=== PATIENT | male | born 1930 | race Caucasian/White ===

== ENCOUNTER → 2016-09-25 | Outpatient (REF) | payer MEDICARE ==
[~2016-09-25] MED LIST: ALLO300T2 PO; ASPI1TAB PO; ASPI81TA85 PO; BACITAB3 PO; CALC500T49 PO; CLAR1TAB2 PO; CORE3.12 PO; CORT10TA PO; CRAN250T PO; CRAN400T3 PO; CYCL5TA PO; DEXA4TA PO; FISH1200 PO; FLON1SPR; FURO40TA2 PO; LACT10SO29 PO; LACT20EL PO; LIDO5TD TD; NYSTOI TOP; OMEP20CA3 PO; PEG1POW PO; PRO-CAP PO; Pantoprazole Sodium PO; RAPA4CAP PO; REVL5CAP2 PO; SENN1TAB2 PO; SODI325T9 PO; TAMS0.4C PO; TORS20TA2 PO; TYLE325T5 PO; TYLE500T78 PO; ULTR50TA PO; VITA100066 PO; VITA500C24 PO; VITA500T88 PO; VITATAB11 PO; ZOME4INJ IV; ZYLO300T4 PO
[2016-09-25 13:54] LABS: IMMUNOGLOBULIN G 2690 MG/DL (681-1648); TOTAL PROTEIN 8.1 GM/DL (6.4-8.2)
[2016-09-25 14:04] LABS: IMMUNOGLOBULIN A 17.8 MG/DL (70-400); IMMUNOGLOBULIN M 10.7 MG/DL (40-230)
[2016-09-28 00:06] LABS: FREE KAPPA LIGHT CHAINS SERUM 66.04 mg/L (3.30-19.40); FREE LAMBDA LIGHT CHAINS SERUM 10.29 mg/L (5.71-26.30); KAPPA/LAMBDA RATIO SERUM 6.42 (0.26-1.65)
[2016-09-30 10:37] LABS: ALBUMIN 3.62 GM/DL (3.29-5.55); ALBUMIN % 44.7 % (55.8-66.1); GAMMA GLOBULIN % 29.9 % (11.1-18.8)
== END ==
LOC: M LAB REF 12:30
PROVIDERS: ATTEND Internal Medicine Medical Oncology
DX: C90.00 Multiple myeloma not having achieved remission (principal)

== ENCOUNTER → 2016-10-15 | Outpatient (CLI) | payer MEDICARE ==
--- NOTE | 2016-10-16 08:30 | RADONC ---
RADIATION ONCOLOGY FOLLOWUP NOTE DATE: 10/15/2016 CHART NUMBER: [id number] DIAGNOSIS: Multiple myeloma. ECOG PERFORMANCE STATUS: 2. FOLLOWUP NOTE: Mr. King is a very pleasant 86-year-old white male with the diagnosis of multiple myeloma who is presenting to us today for routine followup visit one month post completion of palliative radiation therapy to his lower spine. The patient presents today reporting that he is doing much better. He reports that his pain has improved significantly. He walks about quite well with his walker and can even walk around without pain without the walker. The patient's review of systems is positive for some continued low back pain which is improved, but is otherwise generally noncontributory except for the physical limitations secondary to old age. He denies nausea, vomiting, fevers, chills, night sweats, diplopia, headaches, anxiety or depression, anorexia, weight loss, visual disturbances, chest pain, urinary or bowel difficulties, bone pain, or neurological problems. PHYSICAL EXAMINATION: The patient is a well-developed, well-nourished male in no acute distress. HEENT exam is normocephalic, atraumatic. Extraocular movements are intact. There is no palpable cervical, supraclavicular, infraclavicular, axillary, or inguinal lymphadenopathy present. Lungs are clear to auscultation and percussion. Heart has a regular rate and rhythm. Abdomen is benign with no hepatosplenomegaly, masses, or tenderness. Rectal examination reveals a normal anal sphincter tone. Skeletal examination reveals no tenderness to pressure or percussion of the bony skeleton. Extremities reveal no clubbing, cyanosis, or edema. Neurologic exam is grossly intact as is the remainder of the physical examination. ASSESSMENT: The patient is clinically doing quite well at this point. He is scheduled to see Dr. Millan next week to discuss systemic therapy. I let him know that I do not consider him a candidate for further radiation to this area at this time. It would be quite risky. We have therefore set him up for routine followup in our office in 6 months' time. cc: Melina Millan MD *Philippe Santiago, DO
== END ==
LOC: M ONCR 14:04
PROVIDERS: ATTEND Radiology Radiation Oncology
DX: C90.00 Multiple myeloma not having achieved remission (principal)

== ENCOUNTER → 2016-11-18 | Outpatient (REF) | payer MEDICARE ==
[2016-11-18 19:51] LABS: IMMUNOGLOBULIN G 3270 MG/DL (681-1648); TOTAL PROTEIN 8.8 GM/DL (6.4-8.2)
[2016-11-18 20:22] LABS: IMMUNOGLOBULIN A 17.9 MG/DL (70-400); IMMUNOGLOBULIN M 5.62 MG/DL (40-230)
[2016-11-20 13:10] LABS: ALBUMIN 3.78 GM/DL (3.29-5.55); GAMMA GLOBULIN % 33.2 % (11.1-18.8)
[2016-11-21 00:08] LABS: FREE KAPPA LIGHT CHAINS SERUM 105.28 mg/L (3.30-19.40); FREE LAMBDA LIGHT CHAINS SERUM 10.72 mg/L (5.71-26.30); KAPPA/LAMBDA RATIO SERUM 9.82 (0.26-1.65)
== END ==
LOC: M LAB REF 16:36
PROVIDERS: ATTEND Internal Medicine Medical Oncology
DX: C90.00 Multiple myeloma not having achieved remission (principal)

== ENCOUNTER → 2016-12-23 | Outpatient (REF) | payer MEDICARE ==
[2016-12-23 20:24] LABS: TOTAL PROTEIN 8.7 GM/DL (6.4-8.2)
[2016-12-24 11:42] LABS: ALBUMIN 3.85 GM/DL (3.29-5.55); ALBUMIN % 44.3 % (55.8-66.1); GAMMA GLOBULIN % 30.7 % (11.1-18.8)
[2016-12-26 00:06] LABS: FREE KAPPA LIGHT CHAINS SERUM 81.82 mg/L (3.30-19.40); FREE LAMBDA LIGHT CHAINS SERUM 11.54 mg/L (5.71-26.30); KAPPA/LAMBDA RATIO SERUM 7.09 (0.26-1.65)
== END ==
LOC: M LAB REF 16:33
PROVIDERS: ATTEND Internal Medicine Medical Oncology
DX: C90.00 Multiple myeloma not having achieved remission (principal)

== ENCOUNTER → 2017-01-21 | Outpatient (REF) | payer MEDICARE ==
[2017-01-21 14:31] LABS: TOTAL PROTEIN 7.5 GM/DL (6.4-8.2)
[2017-01-22 12:02] LABS: ALBUMIN 3.65 GM/DL (3.29-5.55); ALBUMIN % 48.7 % (55.8-66.1); GAMMA GLOBULIN % 21.9 % (11.1-18.8)
[2017-01-24 00:06] LABS: FREE KAPPA LIGHT CHAINS SERUM 49.82 mg/L (3.30-19.40); FREE LAMBDA LIGHT CHAINS SERUM 14.02 mg/L (5.71-26.30); KAPPA/LAMBDA RATIO SERUM 3.55 (0.26-1.65)
== END ==
LOC: M LAB REF 14:01
PROVIDERS: ATTEND Internal Medicine Medical Oncology
DX: C90.00 Multiple myeloma not having achieved remission (principal)

== ENCOUNTER → 2017-02-19 | Outpatient (REF) | payer MEDICARE ==
[2017-02-19 20:03] LABS: IMMUNOGLOBULIN G 1230 MG/DL (681-1648)
[2017-02-19 20:54] LABS: IMMUNOGLOBULIN A 22.2 MG/DL (70-400)
[2017-02-19 20:55] LABS: IMMUNOGLOBULIN M 5.53 MG/DL (40-230); TOTAL PROTEIN 6.4 GM/DL (6.4-8.2)
[2017-02-20 14:12] LABS: ALBUMIN 3.27 GM/DL (3.29-5.55); ALBUMIN % 51.1 % (55.8-66.1); GAMMA GLOBULIN % 17.3 % (11.1-18.8)
[2017-02-22 00:06] LABS: FREE KAPPA LIGHT CHAINS SERUM 45.5 mg/L (3.3-19.4); FREE LAMBDA LIGHT CHAINS SERUM 16.5 mg/L (5.7-26.3); KAPPA/LAMBDA RATIO SERUM 2.76 (0.26-1.65)
== END ==
LOC: M LAB REF 16:45
PROVIDERS: ATTEND Internal Medicine Medical Oncology
DX: C90.00 Multiple myeloma not having achieved remission (principal)

== ENCOUNTER → 2017-03-30 | Outpatient (REF) | payer MEDICARE ==
[~2017-03-30] MED LIST changes: +BACITAB PO; -BACITAB3 PO; -CYCL5TA PO; +CYCL5TAB PO
[2017-03-30 21:10] LABS: IMMUNOGLOBULIN A 34.9 MG/DL (70-400); IMMUNOGLOBULIN G 947 MG/DL (681-1648); TOTAL PROTEIN 6.2 GM/DL (6.4-8.2)
[2017-03-30 21:40] LABS: IMMUNOGLOBULIN M 8.84 MG/DL (40-230)
[2017-04-01 12:54] LABS: ALBUMIN 3.11 GM/DL (3.29-5.55); ALBUMIN % 50.1 % (55.8-66.1); GAMMA GLOBULIN % 14.2 % (11.1-18.8)
[2017-04-02 00:07] LABS: FREE KAPPA LIGHT CHAINS SERUM 41.2 mg/L (3.3-19.4); FREE LAMBDA LIGHT CHAINS SERUM 24.9 mg/L (5.7-26.3); KAPPA/LAMBDA RATIO SERUM 1.65 (0.26-1.65)
== END ==
LOC: M LAB REF 18:38
PROVIDERS: ATTEND Internal Medicine Medical Oncology
DX: C90.00 Multiple myeloma not having achieved remission (principal)

== ENCOUNTER → 2017-04-15 | Outpatient (CLI) | payer MEDICARE ==
--- NOTE | 2017-04-15 14:29 | RADONC ---
RADIATION ONCOLOGY FOLLOWUP NOTE: DATE OF SERVICE: 04/15/2017 CHART NUMBER: [id number] DIAGNOSIS: Multiple myeloma. ECOG PERFORMANCE STATUS: 2 Mr. King is a very pleasant 86-year-old white male with the diagnosis of multiple myeloma who is presenting to us today for routine followup visit 7 months post completion of external beam radiation therapy. The patient presents today reporting that generally he is doing quite well. The pain in his back and hips is improved significantly. He still has some residual uncomfortable days. He has no other complaints at this time related to his radiation therapy or disease. REVIEW OF SYSTEMS: The patient's review of systems is noncontributory. He denies nausea, vomiting, fevers, chills, night sweats, diplopia, headaches, anxiety or depression, anorexia, weight loss, visual disturbances, chest pain, urinary or bowel difficulties, bone pain, or neurological problems. PHYSICAL EXAMINATION: The patient is a well-developed, well-nourished male in no acute distress. HEENT exam is normocephalic, atraumatic. Extraocular movements are intact. There is no palpable cervical, supraclavicular, infraclavicular, axillary, or inguinal lymphadenopathy present. Lungs are clear to auscultation and percussion. Heart has a regular rate and rhythm. Abdomen is benign with no hepatosplenomegaly, masses, or tenderness. Skeletal examination reveals no tenderness to pressure or percussion of the bony skeleton. Extremities reveal no clubbing, cyanosis, or edema. Neurologic exam is grossly intact, as is the remainder of the physical examination. ASSESSMENT: The patient is clinically doing well at this point. He is receiving systemic therapy at this time with Dr. Millan. He is being followed by his urologist Dr. Irby who has done a PSA level which apparently is rising. He is scheduled to be seen in [place] for further followup and workup for that issue as well. Since the patient is being followed so closely by his medical oncologist for his multiple myeloma and his urologist for his prostate cancer, I have discharged him from our followup except on a as needed basis. He has been instructed to contact me should he develop any new pain or have any questions whatsoever. In addition, I let him know that we would be more than happy to see him at anytime to be referred back to us for any issues whatsoever. cc: Melina Millan MD, FACP MD Brayan Willingham MD
== END ==
LOC: M ONCR 13:04
PROVIDERS: ATTEND Radiology Radiation Oncology
DX: C90.00 Multiple myeloma not having achieved remission (principal)

== ENCOUNTER → 2017-06-08 | Outpatient (REF) | payer MEDICARE ==
[2017-06-08 16:02] LABS: IMMUNOGLOBULIN A 48.9 MG/DL (70-400); IMMUNOGLOBULIN G 1210 MG/DL (681-1648); TOTAL PROTEIN 5.9 GM/DL (6.4-8.2)
[2017-06-08 16:51] LABS: IMMUNOGLOBULIN M 9.23 MG/DL (40-230)
[2017-06-09 12:50] LABS: ALBUMIN 2.64 GM/DL (3.29-5.55); ALBUMIN % 44.7 % (55.8-66.1); GAMMA GLOBULIN % 19.3 % (11.1-18.8)
[2017-06-11 00:07] LABS: FREE KAPPA LIGHT CHAINS SERUM 57.7 mg/L (3.3-19.4); FREE LAMBDA LIGHT CHAINS SERUM 24.5 mg/L (5.7-26.3); KAPPA/LAMBDA RATIO SERUM 2.36 (0.26-1.65)
== END ==
LOC: M LAB REF 12:51
PROVIDERS: ATTEND Internal Medicine Medical Oncology
DX: C90.00 Multiple myeloma not having achieved remission (principal); D64.9 Anemia, unspecified

== ENCOUNTER → 2017-06-30 | Outpatient (REF) | payer MEDICARE ==
[2017-07-01 13:45] LABS: PERCENT SATURATION 31.2 % (19.7-50.0)
== END ==
LOC: M LAB REF 12:56
PROVIDERS: ATTEND Internal Medicine Nephrology
DX: D50.9 Iron deficiency anemia, unspecified (principal)

== ENCOUNTER → 2017-08-10 | Outpatient (REF) | payer MEDICARE ==
[2017-08-10 14:44] LABS: IMMUNOGLOBULIN A 45.8 MG/DL (70-400); IMMUNOGLOBULIN G 1620 MG/DL (681-1648)
[2017-08-10 16:16] LABS: IMMUNOGLOBULIN M 15.1 MG/DL (40-230)
[2017-08-11 10:59] LABS: ALBUMIN 3.49 GM/DL (3.29-5.55); ALBUMIN % 49.8 % (55.8-66.1); GAMMA GLOBULIN % 21.8 % (11.1-18.8)
[2017-08-12 00:06] LABS: FREE KAPPA LIGHT CHAINS SERUM 51.9 mg/L (3.3-19.4); FREE LAMBDA LIGHT CHAINS SERUM 22.9 mg/L (5.7-26.3); KAPPA/LAMBDA RATIO SERUM 2.27 (0.26-1.65)
== END ==
LOC: M LAB REF 12:37
PROVIDERS: ATTEND Internal Medicine Medical Oncology
DX: C90.00 Multiple myeloma not having achieved remission (principal)

== ENCOUNTER → 2017-10-12 | Outpatient (REF) | payer MEDICARE ==
[2017-10-12 21:20] LABS: IMMUNOGLOBULIN A 38.8 MG/DL (70-400); IMMUNOGLOBULIN G 1840 MG/DL (681-1648); TOTAL PROTEIN 7.5 GM/DL (6.4-8.2)
[2017-10-12 21:36] LABS: IMMUNOGLOBULIN M 18.9 MG/DL (40-230)
[2017-10-13 11:15] LABS: ALBUMIN 3.77 GM/DL (3.29-5.55); ALBUMIN % 50.3 % (55.8-66.1); ALPHA-1-GLOBULIN % 4.2 % (2.9-4.9); ALPHA-1-GLOBULINS 0.32 GM/DL (0.17-0.41); ALPHA-2-GLOBULINS 0.98 GM/DL (0.42-0.99); BETA-1-GLOBULINS 0.39 GM/DL (0.28-0.60); BETA-1-GLOBULINS % 5.2 % (4.7-7.2); BETA-2-GLOBULINS 0.28 GM/DL (0.19-0.55); BETA-2-GLOBULINS % 3.7 % (3.2-6.5); GAMMA GLOBULIN % 23.6 % (11.1-18.8); GAMMA GLOBULINS 1.77 GM/DL (0.65-1.58)
[2017-10-15 00:06] LABS: FREE KAPPA LIGHT CHAINS SERUM 67.1 mg/L (3.3-19.4); FREE LAMBDA LIGHT CHAINS SERUM 24.9 mg/L (5.7-26.3); KAPPA/LAMBDA RATIO SERUM 2.69 (0.26-1.65)
== END ==
LOC: M LAB REF 18:13
DX: C90.00 Multiple myeloma not having achieved remission (principal)
CPT/HCPCS: 84165

== ENCOUNTER → 2017-12-10 | Outpatient (REF) | payer MEDICARE ==
[2017-12-10 19:13] LABS: IMMUNOGLOBULIN G 2060 MG/DL (681-1648); TOTAL PROTEIN 7.9 GM/DL (6.4-8.2)
[2017-12-10 19:40] LABS: IMMUNOGLOBULIN A 35.4 MG/DL (70-400)
[2017-12-10 20:22] LABS: IMMUNOGLOBULIN M 18.8 MG/DL (40-230)
[2017-12-13 00:07] LABS: FREE KAPPA LIGHT CHAINS SERUM 76.7 mg/L (3.3-19.4); FREE LAMBDA LIGHT CHAINS SERUM 20.9 mg/L (5.7-26.3); KAPPA/LAMBDA RATIO SERUM 3.67 (0.26-1.65)
[2017-12-15 11:47] LABS: ALBUMIN 3.97 GM/DL (3.29-5.55); ALBUMIN % 50.2 % (55.8-66.1); ALPHA-1-GLOBULIN % 3.7 % (2.9-4.9); ALPHA-1-GLOBULINS 0.29 GM/DL (0.17-0.41); ALPHA-2-GLOBULINS 1.05 GM/DL (0.42-0.99); ALPHA-2-GLOBULINS % 13.3 % (7.1-11.8); BETA-1-GLOBULINS % 5.1 % (4.7-7.2); BETA-2-GLOBULINS 0.25 GM/DL (0.19-0.55); BETA-2-GLOBULINS % 3.2 % (3.2-6.5); GAMMA GLOBULIN % 24.5 % (11.1-18.8); GAMMA GLOBULINS 1.94 GM/DL (0.65-1.58)
== END ==
LOC: M LAB REF 17:27
DX: C90.00 Multiple myeloma not having achieved remission (principal)
CPT/HCPCS: 84165

== ENCOUNTER → 2018-02-23 | Outpatient (REF) | payer MEDICARE ==
[2018-02-23 19:16] LABS: IMMUNOGLOBULIN A 29.4 MG/DL (70-400); IMMUNOGLOBULIN G 2350 MG/DL (681-1648); TOTAL PROTEIN 8.4 GM/DL (6.4-8.2)
[2018-02-25 10:57] LABS: ALBUMIN 3.93 GM/DL (3.29-5.55); ALBUMIN % 46.8 % (55.8-66.1); ALPHA-1-GLOBULIN % 3.8 % (2.9-4.9); ALPHA-1-GLOBULINS 0.32 GM/DL (0.17-0.41); ALPHA-2-GLOBULINS 1.15 GM/DL (0.42-0.99); ALPHA-2-GLOBULINS % 13.7 % (7.1-11.8); BETA-1-GLOBULINS 0.39 GM/DL (0.28-0.60); BETA-1-GLOBULINS % 4.7 % (4.7-7.2); BETA-2-GLOBULINS 0.29 GM/DL (0.19-0.55); BETA-2-GLOBULINS % 3.4 % (3.2-6.5); GAMMA GLOBULIN % 27.6 % (11.1-18.8)
[2018-02-25 10:58] LABS: GAMMA GLOBULINS 2.32 GM/DL (0.65-1.58)
[2018-02-26 00:07] LABS: FREE KAPPA LIGHT CHAINS SERUM 83.7 mg/L (3.3-19.4); FREE LAMBDA LIGHT CHAINS SERUM 17.4 mg/L (5.7-26.3); KAPPA/LAMBDA RATIO SERUM 4.81 (0.26-1.65)
== END ==
LOC: M LAB REF 17:27
DX: Z00.00 Encounter for general adult medical examination without abnormal findings (principal)
CPT/HCPCS: 84165

== ENCOUNTER → 2018-03-09 | Outpatient (REF) | payer MEDICARE ==
[2018-03-09 20:01] LABS: FERRITIN 122 NG/ML (26-388); IRON (FE) 70 UG/DL (65-175); PERCENT SATURATION 26.1 % (19.7-50.0); TOTAL IRON BINDING CAPACITY 268 UG/DL (250-450)
== END ==
LOC: M LAB REF 17:19
DX: N18.4 Chronic kidney disease, stage 4 (severe) (principal); D63.1 Anemia in chronic kidney disease
CPT/HCPCS: 83550

== ENCOUNTER → 2018-04-27 | Outpatient (REF) | payer MEDICARE ==
[2018-04-27 19:27] LABS: IMMUNOGLOBULIN G 2860 MG/DL (681-1648)
[2018-04-27 20:12] LABS: IMMUNOGLOBULIN A 24.9 MG/DL (70-400); IMMUNOGLOBULIN M 8.83 MG/DL (40-230)
[2018-04-29 11:49] LABS: ALBUMIN 3.98 GM/DL (3.29-5.55); ALBUMIN % 44.2 % (55.8-66.1); ALPHA-1-GLOBULIN % 3.9 % (2.9-4.9); ALPHA-1-GLOBULINS 0.35 GM/DL (0.17-0.41); ALPHA-2-GLOBULINS 1.19 GM/DL (0.42-0.99); ALPHA-2-GLOBULINS % 13.2 % (7.1-11.8); BETA-1-GLOBULINS % 4.4 % (4.7-7.2); BETA-2-GLOBULINS 0.29 GM/DL (0.19-0.55); BETA-2-GLOBULINS % 3.2 % (3.2-6.5); GAMMA GLOBULIN % 31.1 % (11.1-18.8)
[2018-04-30 00:07] LABS: FREE KAPPA LIGHT CHAINS SERUM 85.1 mg/L (3.3-19.4); FREE LAMBDA LIGHT CHAINS SERUM 17.1 mg/L (5.7-26.3); KAPPA/LAMBDA RATIO SERUM 4.98 (0.26-1.65)
== END ==
LOC: M LAB REF 17:11
DX: D64.9 Anemia, unspecified (principal); C90.00 Multiple myeloma not having achieved remission; C79.51 Secondary malignant neoplasm of bone
CPT/HCPCS: 84165

== ENCOUNTER → 2018-06-03 | Outpatient (CLI) | payer MEDICARE | LOC: M SMT 12:18 | DX: Z01.818 Encounter for other preprocedural examination (principal); C90.02 Multiple myeloma in relapse | CPT/HCPCS: 71046 ==

== ENCOUNTER 2018-06-08 06:11 | Day surgery (SDC) | payer MEDICARE ==
[2018-06-08 06:52] LABS: INR 1.11; PROTHROMBIN TIME 14.4 SECONDS (12.1-14.4)
[2018-06-08 07:04] LABS: PARTIAL THROMBOPLASTIN TIME 36.5 SECONDS (25.4-37.6)
[2018-06-08] MEDS: LR 1,000 ML IV (07:21)
[2018-06-08] MEDS: MUPIROCIN 2% OINT 22 GM TUBE TOP (07:22)
[2018-06-08] MEDS ORDERED: fentaNYL 100 MCG/2 ML INJECTION (J3010) As Ordered (08:05)
[2018-06-08] MEDS ORDERED: LIDOCAINE 2% INJ 100 MG/5 ML SDV (FOR ANES.) As Ordered (08:05)
[2018-06-08] MEDS ORDERED: PROPOFOL 200 MG/20 ML VIAL As Ordered (08:05)
[2018-06-08] MEDS ORDERED: MIDAZOLAM INJ 2 MG/2 ML VIAL (J2250) As Ordered (08:05)
[2018-06-08] MEDS ORDERED: PHENYLephrine HCL 500 MCG/5 ML (100MCG/ML) SYRINGE (J2370) As Ordered (08:10)
[2018-06-08] MEDS: HEPARIN SOD (PORCINE) 5000 UNITS/ML VIAL As Ordered (08:10)
[2018-06-08] MEDS: BUPIVACAINE LIPOSOME/PF 1.3% 20 ML VIAL (13.3MG/ML)(EXPAREL) As Ordered (08:13)
[2018-06-08] MEDS: LIDOCAINE 1% SDV INJ 30 ML VIAL As Ordered (08:13)
== END 2018-06-08 09:45 | disposition home or self-care (01) ==
LOC: M SDC 06:11
DX: C90.00 Multiple myeloma not having achieved remission (principal); Z45.2 Encounter for adjustment and management of vascular access device; K21.9 Gastro-esophageal reflux disease without esophagitis; N18.9 Chronic kidney disease, unspecified; Z85.46 Personal history of malignant neoplasm of prostate; Z92.21 Personal history of antineoplastic chemotherapy; Z88.2 Allergy status to sulfonamides; Z79.899 Other long term (current) drug therapy
CPT/HCPCS: 36561

== ENCOUNTER → 2018-06-14 | Outpatient (CLI) | payer MEDICARE | LOC: M SMT 10:45 | DX: C90.00 Multiple myeloma not having achieved remission (principal) | CPT/HCPCS: 71046 ==

== ENCOUNTER 2018-07-29 10:53 | Day surgery (SDC) | payer MEDICARE ==
[2018-07-29] MEDS: LR 1,000 ML IV (12:00)
[2018-07-29] MEDS: ceFAZolin 1GM INJ (J0690 PER 500MG) As Ordered (12:37)
[2018-07-29] MEDS ORDERED: PROPOFOL 200 MG/20 ML VIAL As Ordered (13:18)
[2018-07-29] MEDS ORDERED: MIDAZOLAM INJ 2 MG/2 ML VIAL (J2250) As Ordered (13:18)
[2018-07-29] MEDS ORDERED: dexameTHASONE 4 MG/ML 1ML VIAL (J1100) As Ordered (13:18)
[2018-07-29] MEDS ORDERED: fentaNYL 100 MCG/2 ML INJECTION (J3010) As Ordered (13:18)
[2018-07-29] MEDS ORDERED: ONDANSETRON 4MG/2ML VIAL (J2405) As Ordered (13:18)
[2018-07-29] MEDS: LIDOCAINE 2% W/EPIN INJ 20ML **PRES FREE As Ordered (14:01)
[2018-07-29] MEDS: BACITRACIN OINT 30GM As Ordered (14:03)
== END 2018-07-29 15:43 | disposition home or self-care (01) ==
LOC: M SDC 10:53
DX: C44.311 Basal cell carcinoma of skin of nose (principal); C44.212 Basal cell carcinoma of skin of right ear and external auricular canal; C90.00 Multiple myeloma not having achieved remission; K21.9 Gastro-esophageal reflux disease without esophagitis; D64.9 Anemia, unspecified; E27.40 Unspecified adrenocortical insufficiency; N18.3 Chronic kidney disease, stage 3 (moderate); M10.9 Gout, unspecified; R23.3 Spontaneous ecchymoses; M12.9 Arthropathy, unspecified; M25.551 Pain in right hip; M25.552 Pain in left hip; Z88.2 Allergy status to sulfonamides; Z88.6 Allergy status to analgesic agent; Z79.899 Other long term (current) drug therapy; Z87.891 Personal history of nicotine dependence; Z92.21 Personal history of antineoplastic chemotherapy; Z85.46 Personal history of malignant neoplasm of prostate; Z98.41 Cataract extraction status, right eye; Z98.42 Cataract extraction status, left eye; Z96.1 Presence of intraocular lens
CPT/HCPCS: 11640

== ENCOUNTER → 2018-10-25 | Outpatient (REF) | payer MEDICARE ==
[~2018-10-25] MED LIST changes: +ALLO10TA PO; +FERR32TA PO; +FLOM0.4C39 PO; +FLUC10TA PO; +FOLI1TAB11 PO; +LIDO2.5C15 TOP; +MAGN250T9 PO; +MONT10TA2 PO; +MULT1TAB18 PO; +PROAAER10 INH; +ROCA0.5C PO; +SING10TA32 PO; +VITA100072 PO; -ZYLO300T4 PO; +ZYLO300T6 PO
[2018-10-25 13:08] LABS: TOTAL PROTEIN,RANDOM URINE 5.7 MG/DL (0.0-12.0); URINE TOTAL PROTEIN 5.7 MG/DL (0-12)
[2018-10-28 15:25] LABS: UPEP INTERPRETATION NO M-SPIKE NOTED; URINE VOLUME 1650 ML
== END ==
LOC: M LAB REF 11:58
PROVIDERS: ATTEND Internal Medicine Medical Oncology
DX: C90.00 Multiple myeloma not having achieved remission (principal); Z79.899 Other long term (current) drug therapy

== ENCOUNTER → 2019-02-14 | Outpatient (CLI) | payer MEDICARE ==
[~2019-02-14] MED LIST changes: +ACE65ERTAB PO; -ASPI1TAB PO; +ASPI81TA26 PO; +BACI1CAP PO; +LACT10SO7 PO; -LACT20EL PO; +RIBO1CAP PO; -SENN1TAB2 PO; +SENN1TAB40 PO; +SM LTAB5 PO; +VITA100018 PO; -VITA100072 PO
--- NOTE | 2019-02-14 15:03 | REP ---
REASON: Carcinoma of the prostate gland. COMPARISON: 10/16/2005 After the intravenous administration of 21.6 millicuries technetium 99m MDP, total body bone scan was obtained. There is increased radionuclide accumulation which is seen on the right sternoclavicular joint. There is a focus of increased radionuclide accumulation seen in the posterior 5th rib. There is increased radionuclide accumulation seen in the right acromioclavicular joint. Patchy increased uptake is seen in the ankles, and knees consistent with a degenerative type uptake pattern. IMPRESSION: 1. Increased radionuclide accumulation seen in the right sternoclavicular and acromioclavicular joints likely a degenerative type uptake pattern. 2. Single focus of increased radionuclide accumulation right posterior 5th rib and representing a change from the prior exam. The exact etiology uncertain. This could be trauma-related. Since it is nonlinear and unifocal, it would be difficult to say that this represents a metastatic focus, however, that cannot be ruled out. 3. Degenerative type uptake pattern in the knees, essentially unchanged from the prior exam. Electronically Signed by Morgan Soriano DO 02/14/2019 04:10 P
== END ==
LOC: M RAD 10:08
PROVIDERS: ATTEND Urology
DX: M85.89 Other specified disorders of bone density and structure, multiple sites (principal)
CPT/HCPCS: 78306; A9503

== ENCOUNTER → 2019-03-28 | Outpatient (CLI) | payer MEDICARE ==
[~2019-03-28] MED LIST changes: +ACET-839 PO; +AMOX875T2; +B COTAB3 PO; +CBD OIL PO; +DARZ1SOL IV; +FLUD0.1T PO; +HYDR-4513 PO; +KRIS20PA4 PO; +LEVA750T7 PO; +LORA-674 PO; +METO1TAB7 PO; +MILKSUS3 PO; +MULT1CAP3 PO; +OMEP1CAP73 PO; -OMEP20CA3 PO; +RAPA8CAP4 PO; +SENN-53 PO; -SENN1TAB40 PO; +TORS10TA3 PO; +TRAZ-252 PO; +TRIA37.53 PO; +TUMS500C PO; +TURM500C PO; +VITMTA PO
--- NOTE | 2019-03-28 14:02 | REP ---
Bilateral carotid artery duplex ultrasound: Peak flow velocity analysis: RIGHT LEFT ICA Peak flow velocity cm/sec 53.5 51.9 ICA Diastolic flow velocity cm/sec 23.1 17.2 ICA/CCA Ratio 0.8 0.7 ECA Peak flow velocity cm/sec 67.4 68.9 CCA Peak flow velocity cm/sec 69.9 70.4 There is mild atheromatous plaque bilaterally. The peak flow velocities are normal bilaterally. There is no stenosis on the right on the left. There is antegrade flow in the vertebral arteries bilaterally. Electronically Signed by Hayes Grant MD 03/28/2019 01:53 P
== END ==
LOC: M RAD 13:00
PROVIDERS: ATTEND Internal Medicine Nephrology
DX: R42 Dizziness and giddiness (principal)

== ENCOUNTER → 2019-04-06 | Outpatient (REF) | payer MEDICARE ==
[~2019-04-06] MED LIST changes: -ACET-839 PO; -AMOX875T2; -B COTAB3 PO; -CBD OIL PO; -DARZ1SOL IV; -FLUD0.1T PO; -HYDR-4513 PO; -KRIS20PA4 PO; -LEVA750T7 PO; -LORA-674 PO; -METO1TAB7 PO; -MILKSUS3 PO; -OMEP1CAP73 PO; +OMEP20CA4 PO; -RAPA8CAP4 PO; -SENN-53 PO; +SENN1TAB40 PO; -TORS10TA3 PO; -TRAZ-252 PO; -TRIA37.53 PO; -TUMS500C PO; -TURM500C PO; -VITMTA PO
== END ==
LOC: M LAB REF 15:33
PROVIDERS: ATTEND Nurse Practitioner Family
DX: L08.9 Local infection of the skin and subcutaneous tissue, unspecified (principal)

== ENCOUNTER 2019-07-22 03:06 | Inpatient (IN) | payer MEDICARE ==
[~2019-07-22] VITALS: Ht 175.3 cm; Wt 114.6 kg
[2019-07-22] VITALS (38 sets, daily range): BP systolic 86–139; BP diastolic 49–71
[~2019-07-22 03:06] MED LIST changes: +SENN-53 PO; -SENN1TAB40 PO
[2019-07-22] MEDS ORDERED: VASOPRESSIN INJ 20 UNITS in NS 500 ML IV SCH ×2 (03:25→08:00)
[2019-07-22] MEDS ORDERED: ACETAMINOPHEN TAB 650MG DOSE (2X325MG) PO PRN (03:30)
[2019-07-22] MEDS ORDERED: VANCOMYCIN HCL 750 MG, VIAL MATE ADAPTER 1 EACH in D5W 250 ML IV SCH (03:30)
[2019-07-22] MEDS ORDERED: LR 1,000 ML IV SCH (03:30)
[2019-07-22] MEDS ORDERED: NOREPINEPHRINE 4 MG/4 ML AMP As Ordered ONE (06:50)
[2019-07-22] MEDS ORDERED: NOREPINEPHRINE BITARTRATE 8 MG in D5W 500 ML IV SCH (07:00)
[2019-07-22] MEDS: HYDROCORTISONE 100 MG/2 ML VIAL (J1720) IV SCH ×3 (07:00→17:55)
[2019-07-22 07:18] LABS: HEMATOCRIT 38.5 % (42.0-52.0); HEMOGLOBIN 12.5 g/dl (13.5-17.5); MEAN CORPUSCULAR HGB CONC 32.5 g/dl (32.0-36.5); MEAN CORPUSCULAR VOLUME 101.6 fl (80.0-96.0); PLATELET COUNT, AUTOMATED 222 10^3/uL (150-450); RED BLOOD COUNT 3.79 10^6/uL (4.30-6.10); WHITE BLOOD COUNT 5.7 10^3/uL (4.0-10.0)
[2019-07-22] MEDS ORDERED: TORS20TA2 PO (07:36)
[2019-07-22] MEDS ORDERED: VITMTA PO (07:36)
[2019-07-22] MEDS ORDERED: TURM500C PO (07:36)
[2019-07-22] MEDS ORDERED: B COTAB3 PO (07:36)
[2019-07-22] MEDS ORDERED: TORS10TA3 PO (07:36)
[2019-07-22] MEDS ORDERED: ACET-839 PO (07:36)
[2019-07-22] MEDS ORDERED: BACITAB PO (07:36)
[2019-07-22] MEDS ORDERED: LORA-674 PO (07:36)
[2019-07-22] MEDS ORDERED: HYDR-4513 PO (07:36)
[2019-07-22] MEDS ORDERED: DARZ1SOL IV (07:39)
[2019-07-22 07:47] LABS: BILIRUBIN,TOTAL 0.6 MG/DL (0.2-1.0); CALCIUM LEVEL 7.8 MG/DL (8.8-10.2); CREATININE FOR GFR 2.18 MG/DL (0.70-1.30); GLOMERULAR FILTRATION RATE 30.6 (>35); POTASSIUM SERUM 4.3 MEQ/L (3.5-5.1); TOTAL PROTEIN 6.1 GM/DL (6.4-8.2)
[2019-07-22] MEDS ORDERED: EPINEPHrine HCL INJ 1 MG in D5W 240 ML IV SCH (08:00)
[2019-07-22] MEDS: FLUOROURACIL 5% XX SCH ×2 (09:00→20:47)
--- NOTE | 2019-07-22 09:04 | REP ---
Single view chest: 07/22/2019. Indication: Hypotension. Comparison: 06/14/2018. Findings: Left-sided Port-A-Cath is again noted with the distal tip within the SVC. Right greater than left pleural effusions are present. Air space consolidations and atelectasis are noted within the lung bases bilaterally, more pronounced on the right. The cardiac silhouette is not enlarged. There is no evidence of pneumothorax. Impression: Bibasilar air space consolidations and atelectasis. Right greater than left pleural effusions. Electronically Signed by Glenn Guerra DO 07/22/2019 08:55 A
[2019-07-22] MEDS ORDERED: NS 1,000 ML IV SCH (09:15)
[2019-07-22] MEDS: HEPARIN SOD (PORCINE) 5000 UNITS/ML VIAL SC SCH ×3 (09:54→21:10)
[2019-07-22] MEDS: PIPERACILLIN/TAZOBACTAM SOD 2.25 GM in D5W MINI-BAG PLUS 50 ML IV SCH ×3 (09:54→20:45)
[2019-07-22] MEDS ORDERED: VANCOMYCIN HCL 1,000 MG, VIAL MATE ADAPTER 1 EACH in D5W 250 ML IV SCH (12:00)
--- NOTE | 2019-07-22 12:42 | HPEPDOC ---
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 Patient presents as a transfer from [facility], for higher level of care, after presenting last night with one episode of nausea, vomiting, and fever, and diarrhea and hypotension. On initial presentation, patient was found to have hypotension without improvement on fluids. Patient was suspected of having of septic shock. He was given 3.2 L of fluid, started on Zosyn and vancomycin, his port was accessed to begin levophed via chemo port at 8 mcg per minute, prior to transfer to [facility] for higher level of care. Upon arrival to [facility] patient was stable, did not require IV vasopressin, his hypotension had resolved, he was afebrile, he was not tachycardic, he denied any recent vomiting, nausea, or diarrhea. This morning patient was examined in his room, he was sitting on the edge of the bed comfortably, reading a newspaper. Patient reported that he experienced a mild cough without any shortness of breath or any expectoration. He reported that initially he did experience some abdominal pain. He denied any nausea, vomiting, diarrhea, constipation or any urinary discomfort. Patient has denied any fevers or chills over the last 2 weeks. PAST MEDICAL HISTORY: Multiple myeloma - currently on chemotherapy Ambulatory dysfunction Prostate cancer. Basal cell skin cancer. Cellulitis, history of Adrenal sufficiency. Inguinal hernia mesh infection History of lower extremity necrotizing fasciitis C. difficile PAST SURGICAL HISTORY: Amputation of finger, right index Cataract Cryosurgery on prostate Hernia repair with mesh. Umbilical hernia repair SOCIAL HISTORY: Single, denies alcohol use, former smoker, quit several years ago, smoked for 30 years prior. FAMILY HISTORY: Family history was reviewed and is currently noncontributory to this current hospitalization ALLERGIES: Please see below. REVIEW OF SYSTEMS: CONSTITUTIONAL: No fevers, denies chills, denies weight loss, denies lethargy HEENT: No rhinorrhea, no itchy eyes, no congestion, CARDIOVASCULAR: No murmurs no palpitations and arrhythmias RESPIRATORY: No shortness of breath, has occasional cough GASTROINTESTINAL: No nausea, no vomiting, no difficulty swallowing, no pain with eating, no diarrhea. Previously reported diarrhea, nausea and vomiting HEMATOLOGICAL: No bleeding GENITOURINARY:No Issues HEMATOLOGIC/LYMPHATIC: No swelling 10 point review systems complete, all negative otherwise stated in HPI PHYSICAL EXAMINATION: VITALS: See Below GENERAL APPEARANCE: Alert no acute distress, comfortably reading a newspaper SKIN: Warm, well perfused. Surgical scar on the right lower leg HEENT: PEERLA, 2 areas of biopsies taken noted LUNGS: No appreciable wheezing, no crackles or rhonchi HEART: Normal S1, S2. No murmurs, no rubs, no gallops ABDOMEN: Soft. No masses. Non-tender, Bowel sounds are present. TRUNK/SPINE:Straight. EXTREMITIES: 1+ pitting edema on bilateral lower extremity, surgical scar noted on patient's right leg PULSES: 2+ upper and lower extremity . HOME MEDICATIONS: Please see below. LABORATORY DATA: See below. IMAGING: Chest x-ray: Bibasilar air space consolidations and atelectasis. Right greater than left pleural effusions. MICROBIOLOGY: Please see below. 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 He presents as a transfer from [facility], for higher level of care, after presenting last night with one episode of nausea, vomiting, and fever, and diarrhea and hypotension. On initial presentation, patient was diagnosed with septic shock. He was given 3.2 L of fluid, started on Zosyn and vancomycin, his port was accessed to begin levophed via chemo port at 8 mcg per minute, prior to transfer to [facility] for higher level of care. PLAN: #Hypotension - possibly 2/2 secondary to adrenal crisis in the setting of adrenal insufficiency, possibly 2/2 to hypovolemic shock, secondary to dehydration, possibly 2/2 septic shock - Patient was adequately hydrated using the sepsis protocol prior to transfer. He receive a total of 3.2 liters prior to transfer - Blood pressure has been stable, since transfer - has not required pressor jimenez pport - CBC was within normal limits, WBC was 3.3 on initial presentation to [facility] - Will order respiratory panel, blood cultures, urine cultures / urinalysis - Will c/w broad spectrum coverage with vancomycin and Zosyn # Possible sepsis Infectious workup. On patient's original presentation to the [facility] patient was found to be in septic shocK due to hypotension, fever, abdominal pain, vomiting, infection, source could not be identified. Prior transfer -CT abdomen and pelvis was negative prior transfer -Ordered. Respiratory panel -Chest x-ray is positive for basilar airspace consolidation and atelectasis with right pleural effusion greater than left -Sputum culture ordered -Urinalysis with evidence of inflammation; however no nitrates or bacteria noted to indicate infection, urine cultures pending -Blood cultures pending -GI panel in the presence of diarrhea -On broad-spectrum antibiotic coverage with vancomycin and Zosyn, will de- escalate as cultures become available #Septic shock, secondary to pneumonia -Chest x-ray shows: Bibasilar air space consolidations and atelectasis. Right greater than left pleural effusions -Currently on broad-spectrum antibiotics, with vancomycin and Zosyn -Gentle IV hydration at 80 milliliters per hour of normal saline #Lactic acidosis secondary to hypovolemia, secondary to septic shock, secondary to possible infection, -Initial presentation. Lactic acid was 2.3, repeat pending #Acute on chronic kidney injury, secondary to dehydration, patient has stage III kidney disease at baseline -Continue gentle IV hydration -We'll hold diuretics -Hold nephrotoxins #Adrenal sufficiency -Received 100 mg of hydrocortisone prior to transfer -Continue hydrocortisone 50 mg every 6 hours IV #Pulmonary HTN history / Possible Diastolic CHF -Prior ECHO done 2015 - evidence of pulmonary HTN and dilated IVC -Echo ordered -Patient does have 1+ pitting edema in lower extremity and evidence of effusions on CXR -Will hold Torsemide at this time #Multiple myeloma -Currently undergoing chemotherapy, last chemotherapy was 2 weeks ago -Receives duratamumab q monthly #ESTUARDO not on CPAP -Order ESTUARDO protocol #Urinary retention, secondary obstruction, secondary to prostate carcinoma -Consulted urology for catheter placement, after multiple failed attempts. -Per Dr. Martinez, catheter cannot be removed during hospital stay due to surgurical scarring from his prior surgery. He will need to follow up with Dr. Martinez after discharge [facility] for removal of the catheter and surgical opening of his bladder neck. Otherwise patient will be unable to urinate #Ambulatory dysfunction, patient at baseline ambulates for a walker -PT #Hyperglycemia, secondary to steroid use -Sliding-scale insulin -ACHS #DVT prophylaxis -Subcutaneous heparin every 8 Vital Signs Vital Signs Date Time Temp Pulse Resp B/P (MAP) Pulse Ox O2 Delivery O2 Flow Rate FiO2 07/22/19 10:00 92 116/57 (76) 07/22/19 07:49 98 Room Air 07/22/19 07:30 98.7 16 07/22/19 07:27 2.0 Laboratory Data Labs 24H Laboratory Tests 2 07/22/19 07:04: Nucleated Red Blood Cells % (auto) 0.0, Anion Gap 5L, Glomerular Filtration Rate 30.6L, Lactic Acid Level 2.3*H, Calcium Level 7.8L, Total Bilirubin 0.6, Aspartate Amino Transf (AST/SGOT) 13, Alanine Aminotransferase (ALT/SGPT) 19, Alkaline Phosphatase 98, Total Protein 6.1L, Albumin 3.0L, Albumin/Globulin Ratio 0.97L 07/22/19 09:18: Urine Color YELLOW, Urine Appearance HAZY, Urine pH 5.0, Urine Specific [place] 1.017, Urine Protein 1+H, Urine Glucose (UA) NEGATIVE, Urine Ketones NEGATIVE, Urine Blood 3+H, Urine Nitrite NEGATIVE, Urine Bilirubin NEGATIVE, Urine Urobilinogen 0.2, Urine Leukocyte Esterase 2+H, Urine WBC (Auto) 21H, Urine RBC (Auto) 11H, Urine Hyaline Casts (Auto) 0, Urine Bacteria (Auto) NEGATIVE, Urine Squamous Epithelial Cells 0, Urine Sperm (Auto) 07/22/19 10:35: CBC/BMP Laboratory Tests 07/22/19 07:04 Microbiology Microbiology 07/22/19 Urine Culture, Received Pending 07/22/19 Blood Culture, Received Pending 07/22/19 Blood Culture, Received Pending Home Medications Scheduled Acetaminophen (Acetaminophen) 500 Mg Tablet, 500 MG PO BID Allopurinol (Allopurinol) 100 Mg Tab, 100 MG PO DAILY Ascorbic Acid (Vitamin C) 500 Mg Tab, 500 MG PO DAILY Calcitriol (Rocaltrol) 0.5 Mcg Cap, 0.5 MCG PO DAILY Cholecalciferol (Vitamin D3) (Vitamin D3) 1,000 Unit Tab, 2,000 UNIT PO DAILY Cranberry Fruit (Cranberry) 400 Mg Tab, 400 MG PO DAILY Cyanocobalamin (Vitamin B-12) (Vitamin B-12) 1,000 Mcg Tab, 1,000 MCG PO DAILY Daratumumab (Darzalex) 100 Mg/5 Ml Vial, 1,700 MG IV QMONTH Ferrous Gluconate (Ferrous Gluconate) 324 Mg Tab, 324 MG PO QPM Folic Acid (Folic Acid) 1 Mg Tab, 1 MG PO DAILY Hydrocortisone (Hydrocortisone) 10 Mg Tablet, 20 MG PO BID L.acidoph/L.bulg/B.bif/S.therm (Bacid Caplet) 1 Each Tablet, 1 TAB PO DAILY Magnesium Oxide (Magnesium Oxide) 250 Mg Tab, 250 MG PO Q2D Multivitamins (Thera M Plus Tablet) 1 Each Tablet, 1 TAB PO DAILY Omeprazole (Omeprazole) 20 Mg Cap, 20 MG PO DAILY Sennosides/Docusate Sodium (Senna Plus Tablet) 1 Tab Tab, 1 TAB PO BID Tamsulosin HCl (Flomax) 0.4 Mg Cap, 0.4 MG PO Q2D Torsemide (Torsemide) 10 Mg Tablet, 10 MG PO QPM Torsemide (Torsemide) 20 Mg Tablet, 20 MG PO DAILY Turmeric/Turmeric Root Extract (Turmeric 500 mg Capsule) 1 Each Capsule, 500 MG PO DAILY Vitamin B Complex (Vitamin B Complex) 1 Each Tablet, 1 TAB PO DAILY Scheduled PRN Loratadine (Loratadine) 10 Mg Tablet, 10 MG PO DAILY PRN for ALLERGY SYMPTOMS Allergies Coded Allergies: Sulfa (Sulfonamide Antibiotics) (Verified Allergy, Intermediate, hives, 12/08/18) aspirin (Verified Adverse Reaction, Intermediate, kidney issues, 07/22/19) GME ATTESTATION GME ATTESTATION My faculty preceptor for this patient encounter was physically present during the encounter and was fully available. All aspects of the patient interview, examination, medical decision making process, and medical care plan development were reviewed and approved by the faculty preceptor. The faculty preceptor is aware and concurs with the plan as stated in the body of this note and will at test to such by his/her cosignature. ATTENDING NOTE I, Sonia Mcqueen, have independently examined this patient and performed my own physical exam, as well as reviewed the documentation and edited where necessary. I have discussed in detail with the resident / student the findings and plan of treatment as documented by the resident / student and edited their note. I agree with their findings and treatment plan and have edited their documentation. I will continue to follow the patient during this hospital stay. GALDINO HUSTON DO Jul 22, 2019 12:41 SONIA MCQUEEN MD Jul 22, 2019 15:37
[2019-07-22] MEDS ORDERED: GLUCAGON FOR INJ 1 MG VIAL (J1610) SC PRN (13:00)
[2019-07-22] MEDS ORDERED: GLUCOSE 4 GM CHEW TABLET PO PRN (13:00)
[2019-07-22] MEDS ORDERED: DEXTROSE 50% 50 ML SYRINGE IV PRN (13:00)
[2019-07-22] MEDS ORDERED: LIDOCAINE 2% 5ML JELLY UROJET TOP ONE (13:30)
[2019-07-22 13:39] LABS: HEMOGLOBIN A1c 5.9 %
--- NOTE | 2019-07-22 14:14 | PHACANCOPD ---
PHARMACY VANCOMYCIN DOSING Pt Demographics Demographics Patient Age:88 , Weight:106.590 , Gender: male Adjusted Body Weight Date: 07/22/19, Adjusted Body Weight: Kg Events Past 24 Hours Events Past 24 Hours: NO: Dialysis, Diuretic Therapy, Change in CrCl, Fever, Elevation in WBC, Pending Diagnostics, Pending Procedures, Other Vancomycin Vancomycin indication: SEPSIS Vancomycin Target Ranges: 15-20 mcg/ml Vancomycin Load Y/N: Yes Load Dose Date Time Vancomycin Load Dose: 1000 mg Date: 07/22/19 Time: 0000 Vancomycin Dose Date: 07/22/19. Current Vancomycin Dose: [ 1 gram q24h ] Intermittent Dosing?: No Labs Labs Vital Signs Label Value Date Time Patient Temperature 99.4 degrees F 07/22/19 1139 Temperature Source Temporal 07/22/19 1139 Pulse 94 07/22/19 1139 Pulse 92 07/22/19 1000 Pulse 92 07/22/19 0956 Blood Pressure Assessment 102/59 (73) 07/22/19 1139 Blood Pressure Assessment 116/57 (76) 07/22/19 1000 Blood Pressure Assessment 92/54 (67) 07/22/19 0956 Blood Pressure Assessment 98/57 (71) 07/22/19 0945 Item Value Date Time White Blood Count 5.7 10^3/uL 07/22/19 0704 Creatinine 2.18 MG/DL H 07/22/19 0704 Glomerular Filtration Rate 30.6 L 07/22/19 0704 Lactic Acid Level 2.3 MMOL/L *H 07/22/19 0704 Lactic Acid Level 2.6 MMOL/L *H 07/22/19 1035 Micro Microbiology 07/22/19 Respiratory Virus Panel (PCR) (ANDRE), Received Pending 07/22/19 Urine Culture, Received Pending 07/22/19 Blood Culture, Received Pending 07/22/19 Blood Culture, Received Pending Creatinine Clearance Date:07/22/19. Creatinine Clearance: [ 23.87 mL/min ]. Assessment and Plan Maintaining Current Dose?: Yes Reason for dose change: No Dose Change Pharmacist Note Pharmacist Note Date: 07/22/19. Pharmacist note: Mr. King was transferred to [facility] from [facility] after reporting to the emergency department complaining of nausea, vomiting, diarrhea, fever, and hypotension. He was rehydrated before transfer to [facility]. Upon arrival he did not require vasopressors and was initiated on broad-spectrum antibiotic therapy consisting of Zosyn and vancomycin. He received 1 gram of vancomycin 07/22/19 @ 0000. Blood and urine cultures are pending, in addition to a respiratory virus panel. We will begin his maintenance dosing of 1 gram every 24 hours starting at 1200 today and obtain a trough to determine steady-state @ 1100 on 07/23/19. We will continue to monitor and make adjustments as needed. [facility] Jul 22, 2019 14:14
[2019-07-22] MEDS ORDERED: MORPHINE 2 MG/ML 1ML VIAL (J2270) As Ordered ONE (15:23)
[2019-07-22] MEDS ORDERED: MORPHINE 2 MG/ML 1ML VIAL (J2270) IV ONE (15:30)
[2019-07-22 15:47] LABS: C REACTIVE PROTEIN QUANTITATIV 5.25 MG/DL (0.00-0.30)
[2019-07-22] MEDS: HumaLOG INSULIN (NovoLOG) PER UNIT SC SCH ×2 (17:30→20:43)
--- NOTE | 2019-07-22 17:44 | SMCUROLCON ---
Urology Consultation General Date of Consultation 07/22/19 Reason For Consultation This patient is seen for Septic Shock. History of Present Illness This is an 88 y/o M w/ a PMH significant for prostate cancer treated w/ cryotherapy about 8 years ago, multiple myeloma, and adrenal insufficiency, admitted to the ICU as a transfer from [facility] for possible septic shock. We have been consulted for assistance w/ catheter placement. Per report multiple attempts had been made to place a catheter at [facility] and here w/o success. An attempt was also made to place a coude catheter. The patient has voided small a os since being here, but his PVR was measured at > 700cc. The patient notes having difficulty w/ catheter placements previously but does not recall ever having any procedures done to place a catheter. Past Medical History Medical History see HPI Surgical Hstory hernia repair, SB resection, prostate cryotherapy Medications Current Medications Current Medications Medications (Trade) Dose Ordered Sig/Isis Route PRN Reason Start Time Stop Time Status Last Admin Dose Admin Acetaminophen (Tylenol Tab) 650 mg Q4H PRN PO PAIN OR FEVER 07/22/19 03:30 Dextrose (Dextrose 50%) 25 ml ASDIRECTED PRN IV SEE LABEL COMMENTS 07/22/19 13:00 Epinephrine HCl 1 mg/Dextrose 250 ml @ 1 mls/hr Q24H IV 07/22/19 08:00 07/22/19 17:27 DC Glucagon (Glucagon) 1 mg ASDIRECTED PRN SC SEE LABEL COMMENTS 07/22/19 13:00 Glucose (Glucose) 16 GM ASDIRECTED PRN PO SEE LABEL COMMENTS 07/22/19 13:00 Heparin Sodium (Porcine) (Heparin) 5,000 units Q8H SC 07/22/19 06:00 07/22/19 09:54 Home Med (Med Rec Complete!) ASDIRECTED XX 07/22/19 07:45 07/22/19 07:46 DC Hydrocortisone (A-Hydrocort) 50 mg Q6H IV 07/22/19 07:00 07/22/19 12:04 Insulin Human Lispro (HumaLOG INSULIN) SEE PROTOCOL TABLE AC SC 07/22/19 17:30 Insulin Human Lispro (HumaLOG INSULIN) SEE PROTOCOL TABLE QHS SC 07/22/19 21:00 Lactated Ringer's 1,000 ml @ 80 mls/hr [id number] IV 07/22/19 03:30 11/8/19 09:07 DC Norepinephrine Bitartrate 8 mg/ Dextrose 508 ml @ 15.24 mls/ hr Q24H IV 07/22/19 07:00 07/22/19 17:27 DC Patient Own Medication (Patient'S Own Med) Apply to scalp and ri... BID XX 07/22/19 09:00 Piperacillin Sod/ Tazobactam Sod 2.25 gm/Dextrose 50 ml @ 100 mls/hr Q6H IV 07/22/19 09:00 07/22/19 16:17 Sodium Chloride 1,000 ml @ 80 mls/hr [id number] IV 07/22/19 09:15 07/22/19 15:30 DC 07/22/19 09:54 Vancomycin HCl 750 mg/IV Miscellaneous Supplies 1 each/ Dextrose 275 ml @ 275 mls/hr Q8H IV 07/22/19 03:30 07/22/19 08:29 DC Vancomycin HCl 1000 mg/IV Miscellaneous Supplies 1 each/ Dextrose 270 ml @ 270 mls/hr Q24H IV 07/22/19 12:00 07/22/19 12:05 Vasopressin 20 units/Sodium Chloride 501 ml @ 60 mls/hr Q8H21M IV 07/22/19 03:25 07/22/19 07:08 DC Vasopressin 20 units/Sodium Chloride 501 ml @ 60 mls/hr Q8H21M IV 07/22/19 08:00 07/22/19 17:27 DC Allergies Allergies: Coded Allergies: Sulfa (Sulfonamide Antibiotics) (Verified Allergy, Intermediate, hives, 12/08/18) aspirin (Verified Adverse Reaction, Intermediate, kidney issues, 07/22/19) Review of Systems Constitutional: Reports: Fever Gastrointestinal: Reports: Nausea, Vomiting Genitourinary: Reports: Retention Psych: Reports: Mood Normal Physical Examination General Exam: Alert, Cooperative Chest Exam: Normal air movement Heart Exam: Rate Normal Abdomen Exam: Soft Male Exam uncircumcised phallus w/ normal meatus; no glans lesions Skin Exam: Nl turgor and temperature Neuro Exam: Normal Speech Psych Exam: Mental status NL, Mood NL Vital Signs/I&O Vital Signs Date Time Temp Pulse Resp B/P (MAP) Pulse Ox O2 Delivery O2 Flow Rate FiO2 07/22/19 15:35 18 07/22/19 14:30 83 94/56 (69) 07/22/19 11:39 99.4 99 Room Air 07/22/19 07:27 2.0 Laboratory Data 24H Labs Laboratory Tests 2 07/22/19 07:04: Nucleated Red Blood Cells % (auto) 0.0, Anion Gap 5L, Glomerular Filtration Rate 30.6L, Lactic Acid Level 2.3*H, Calcium Level 7.8L, Total Bilirubin 0.6, Aspartate Amino Transf (AST/SGOT) 13, Alanine Aminotransferase (ALT/SGPT) 19, Alkaline Phosphatase 98, C-Reactive Protein, Quantitative 5.25H, Total Protein 6.1L, Albumin 3.0L, Albumin/Globulin Ratio 0.97L 07/22/19 07:19: Estimated Mean Plasma Glucose 123H, Hemoglobin A1c 5.9 07/22/19 09:18: Urine Color YELLOW, Urine Appearance HAZY, Urine pH 5.0, Urine Specific [place] 1.017, Urine Protein 1+H, Urine Glucose (UA) NEGATIVE, Urine Ketones NEGATIVE, Urine Blood 3+H, Urine Nitrite NEGATIVE, Urine Bilirubin NEGATIVE, Urine Urobilinogen 0.2, Urine Leukocyte Esterase 2+H, Urine WBC (Auto) 21H, Urine RBC (Auto) 11H, Urine Hyaline Casts (Auto) 0, Urine Bacteria (Auto) NEGATIVE, Urine Squamous Epithelial Cells 0, Urine Sperm (Auto) 07/22/19 10:35: Lactic Acid Level 2.6*H 07/22/19 15:00: Lactic Acid Followup at 4 Hours 1.2 07/22/19 17:29: Bedside Glucose (Misc Panel) 130H CBC/BMP Laboratory Tests 07/22/19 07:04 Microbiology Microbiology 07/22/19 Respiratory Virus Panel (PCR) (ANDRE) - Final, Complete 07/22/19 Urine Culture, Received Pending 07/22/19 Blood Culture, Received Pending 07/22/19 Blood Culture, Received Pending Assessment This is an 88 y/o M admitted for septic shock and found to be in urinary retention. Under sterile conditions I attempted to place a 16Fr coude catheter w/o success. I met moderate resistance at the level of the bladder neck. Given concern for a false passage or a bladder neck contracture (BNC), the decision was made to perform bedside cystoscopy. After informed consent was signed, bed side cystoscopy was performed and was notable for a narrow BNC. This was dilated to 18Fr and then a 16Fr venetie ira tip catheter was placed over a wire. Clear urine drained upon removal of the wire. Given the tight contracture, he will likely require a transurethral incision of the bladder neck (TUIBN) down the line. Given the difficulty getting his catheter in, I would recommend against removing his catheter until this is accomplished. Plan - keep catheter to gravity drainage - abx per primary team - when patient has improved, he should be discharged home w/ his catheter w/ f/u in the urology office shortly afterward to get him set up for a TUIBN DARNELL STANTON MD Jul 22, 2019 17:44
--- NOTE | 2019-07-22 22:12 | RO ---
DATE OF PROCEDURE: 07/22/2019 PREPROCEDURE DIAGNOSIS: Urinary retention. POSTPROCEDURE DIAGNOSIS: Urinary retention, bladder neck contracture. PROCEDURE: Cystoscopy, urethral dilation, complex catheter placement over a wire. SURGEON: Trent Martinez MD EVAPORATOR: None. ANESTHESIA: Transurethral lidocaine gel. OPERATIVE INDICATIONS: This is an 88-year-old male who was transferred into the intensive care unit (ICU) for possible septic shock. Multiple attempts have been made to try to place a catheter without success. This raised concern for possible urethral false passage or a bladder neck contracture. I, therefore, recommended that we perform bedside cystoscopy with the goal of placing a catheter over a wire. DESCRIPTION OF PROCEDURE: The patient was prepped and draped in the usual sterile fashion in supine position. Transurethral lidocaine gel was instilled into the urethra. At this point, a flexible cystoscope was advanced into the urethra and towards the bladder. Of note, at the level of the bladder neck, there was a moderately narrow contracture. I could not advance the scope through the contracture. I, therefore, advanced a wire through the contracture and into the bladder. I then withdrew the scope and utilized the wire to dilate the contracture to 18-Belgian using blue Cook fascial dilators. Once this was done, the wire was utilized to advance a 16-[place] Tip catheter. Of note, this did go in with still a moderate amount of resistance. I was ultimately able to advance the catheter in and hub it. Once that was done, the balloon was filled with 10 mL of sterile water and then the wire was removed with immediate outflow of clear yellow urine. The catheter was connected to gravity drainage, and this marked the conclusion of the procedure. Estimated blood loss: 0 mL. Complications: None. Specimens: None. PLAN: The patient will be treated in the hospital and then discharged home. I recommend short followup in the urology clinic as we will likely need to get him set up for a transurethral incision of the bladder neck. I am concerned that if we just take his catheter out, he will have difficulty voiding and then we would have difficulty placing a new catheter again.
[2019-07-23] VITALS (11 sets, daily range): BP systolic 90–141; BP diastolic 55–73
[2019-07-23] MEDS: HYDROCORTISONE 100 MG/2 ML VIAL (J1720) IV SCH ×4 (00:47→22:28)
[2019-07-23] MEDS: PIPERACILLIN/TAZOBACTAM SOD 2.25 GM in D5W MINI-BAG PLUS 50 ML IV SCH ×2 (02:23→08:24)
[2019-07-23 04:34] LABS: BASO % 0.2 % (0.0-1.0); HEMATOCRIT 33.3 % (42.0-52.0); HEMOGLOBIN 10.9 g/dl (13.5-17.5); LYMPH # 1.1 10^3/uL (1.5-5.0); LYMPH % 18.5 % (24.0-44.0); MEAN CORPUSCULAR HEMOGLOBIN 32.8 pg (27.0-33.0); MEAN CORPUSCULAR HGB CONC 32.7 g/dl (32.0-36.5); MEAN CORPUSCULAR VOLUME 100.3 fl (80.0-96.0); MONO # 0.3 10^3/uL (0.0-0.8); MONO % 5.5 % (0.0-5.0); NEUTROPHILS # 4.4 10^3/uL (1.5-8.5); NEUTROPHILS % 75.3 % (36.0-66.0); PLATELET COUNT, AUTOMATED 207 10^3/uL (150-450); RED BLOOD COUNT 3.32 10^6/uL (4.30-6.10); WHITE BLOOD COUNT 5.8 10^3/uL (4.0-10.0)
[2019-07-23 04:54] LABS: C REACTIVE PROTEIN QUANTITATIV 9.24 MG/DL (0.00-0.30); CALCIUM LEVEL 7.4 MG/DL (8.8-10.2); CREATININE FOR GFR 1.85 MG/DL (0.70-1.30); MAGNESIUM LEVEL 1.8 MG/DL (1.8-2.4); POTASSIUM SERUM 3.7 MEQ/L (3.5-5.1)
[2019-07-23] MEDS: HEPARIN SOD (PORCINE) 5000 UNITS/ML VIAL SC SCH ×3 (06:17→22:28)
[2019-07-23] MEDS: FLUOROURACIL 5% XX SCH ×2 (08:25→20:52)
[2019-07-23] MEDS: HumaLOG INSULIN (NovoLOG) PER UNIT SC SCH ×4 (08:26→20:40)
--- NOTE | 2019-07-23 10:03 | IPNPDOC ---
Text Note Date of Service The patient was seen on 07/23/19. NOTE Subjective: Patient was examined in the ICU this morning. He was eating his breakfast. He admitted to a mild cough without sputum production. He was afebrile overnight, he denied any chills PHYSICAL EXAMINATION: VITALS: See Below GENERAL APPEARANCE: Alert no acute distress, no apparent distress, just eating breakfast SKIN: Warm, well perfused. Surgical scar on the right lower leg HEENT: PEERLA, 2 areas of biopsies taken noted LUNGS: CTAB HEART: Normal S1, S2. No murmurs, ABDOMEN: Soft. No masses. Bowel sounds are present. GENITALS: Catheter in place, draining clear urine EXTREMITIES: 1+ pitting edema on bilateral lower extremity, surgical scar noted on patient's right leg PULSES: 2+ upper and lower extremity . ASSESSMENT: Patient is an 88-year-old man with underlying PMHx of baseline ambulatory dysfunction, walks with a walker, prostate cancer, multiple myeloma - currently undergoing chemotherapy, basal skin cell cancer, history of cellulitis, adrenal sufficiency currently on hydrocortisone, inguinal hernia with mesh infection approximately 6 years ago. Was presented to [facility] as a direct transfer from an outside facility for profound hypotension. PLAN: #Hypotension - possibly 2/2 adrenal crisis in the setting of adrenal insufficiency, possibly 2/2 to hypovolemic shock 2/2 dehydration, possibly 2/2 septic shock - Patient was adequately hydrated using the sepsis protocol prior to transfer. He receive a total of 3.2 liters prior to transfer - Blood pressure has been stable, since transfer - has not required pressor support (Pressors have been discontinued) - CBC was within normal limits, WBC was 3.3 on initial presentation to [facility] - Respiratory Panel Negative - Blood Cultures negative for growth after 24 hours - Urine Culture pending - No leukocytosis - s/p IV fluid support; has not required Pressor support - IV hydrocortisone that was increased on admission will be tapered down # Possible sepsis Infectious workup. - On patient's original presentation to the [facility] patient hypotension, fever, abdominal pain, vomiting, infection, source could not be identified there -CT abdomen and pelvis was negative prior transfer -Respiratory panel negative -Chest x-ray is positive for basilar airspace consolidation and atelectasis with right pleural effusion greater than left -Sputum culture ordered -Urinalysis with evidence of inflammation; however no nitrates or bacteria noted to indicate infection, urine cultures pending- Will stop treating for UTI today -Blood cultures No growth in 24 hours -GI panel in the presence of diarrhea #Air space opacities - possibly 2/2 Pneumonia, however possibly 2/2 fluid overload - Clinically patient has noted some SOB, cough, without any significant sputum production - Chest x-ray shows: Bibasilar air space consolidations and atelectasis. Right greater than left pleural effusions - Will discontinue broad spectrum antibiotics (Van and Zosyn); will start Levaquin to cover pneumonia renally dosed - antibiotic day #3 #Lactic acidosis secondary to hypovolemia, secondary to septic shock, secondary to possible infection, -Resolved #Chronic kidney injury - Patient's baseline creatinine appears to be between 2.0 - 2.1 - Suspect kidney function is better than baseline - s/p IV fluids - Hold nephrotoxins - Will resume diuretics #Adrenal sufficiency -Received 100 mg of hydrocortisone prior to transfer -Patient is on home dose of 20 mg of hydrocortisone BID -Will switch from hydrocortisone 50 mg every 6 hours IV to 50 mg every 8 hours; will continue to taper dose and transition to oral corticosteroids within 24-48 hours #Pulmonary HTN history / Possible Diastolic CHF -Prior ECHO done 2016 - evidence of pulmonary HTN and dilated IVC -Echo ordered - remains pending -Patient does have 1+ pitting edema in lower extremity and evidence of effusions on CXR -Will resume Torsemide at this time ( #Multiple myeloma -Currently undergoing chemotherapy, last chemotherapy was 2 weeks ago -Receives duratamumab q monthly #ESTUARDO not on CPAP -Order ESTUARDO protocol #Urinary retention, secondary obstruction, secondary to prostate carcinoma and enlarged prostate -Consulted urology for catheter placement, after multiple failed attempts. -Per Dr. Martinez, catheter cannot be removed during hospital stay due to surgurical scarring from his prior surgery. He will need to follow up with Dr. Martinez after discharge [facility] for removal of the catheter and surgical opening of his bladder neck. Otherwise patient will be unable to urinate - Will resume Tamsulosin at home doses #Ambulatory dysfunction, patient at baseline ambulates for a walker -PT #Hyperglycemia, secondary to steroid use -Sliding-scale insulin -ACHS Macrocytic Anemia - Hx of iron deficiency anemia and B12 deficiency - Hg has trended down the point of admission; likely secondary to dilutional etiology - will resume Ferrous sulfate and B12 supplementation Gout - Will resume allopurinol Vitamin D / B12 deficiency - will resume Vitamin supplementation GERD - c/w Omeprazole #DVT prophylaxis - c/w Heparin VS,Fishbone, I+O VS, Fishbone, I+O Laboratory Tests 07/23/19 04:00 Vital Signs Date Time Temp Pulse Resp B/P (MAP) Pulse Ox O2 Delivery O2 Flow Rate FiO2 07/23/19 06:00 82 18 107/69 (82) 07/23/19 04:00 97.8 92 Room Air 07/22/19 07:27 2.0 I&O- Last 24 Hours up to 6 AM 07/23/19 05:59 Intake Total 2570 ml Output Total 1400 ml Balance 1170 ml GME ATTESTATION GME ATTESTATION My faculty preceptor for this patient encounter was physically present during the encounter and was fully available. All aspects of the patient interview, examination, medical decision making process, and medical care plan development were reviewed and approved by the faculty preceptor. The faculty preceptor is aware and concurs with the plan as stated in the body of this note and will attest to such by his/her cosignature. ATTENDING NOTE I, Sonia Casiano, have independently examined this patient and performed my own physical exam, as well as reviewed the documentation and edited where necessary. I have discussed in detail with the resident / student the findings and plan of treatment as documented by the resident / student and edited their note. I agree with their findings and treatment plan and have edited their documentation. I will continue to follow the patient during this hospital stay. GALDINO HUSTON DO Jul 23, 2019 10:03 SONIA CASIANO MD Jul 23, 2019 12:37
[2019-07-23] MEDS ORDERED: LevoFLOXacin IV 750 MG in IV 1 EA IV SCH (11:00)
[2019-07-23] MEDS ORDERED: HYDROCORTISONE 100 MG/2 ML VIAL (J1720) IV SCH (12:00)
[2019-07-23] MEDS ORDERED: LORATADINE 10 MG TAB PO PRN (12:30)
[2019-07-23] MEDS: ALLOPURINOL 100 MG TAB PO SCH (13:36)
[2019-07-23] MEDS: TORSEMIDE 20 MG TAB PO SCH (13:36)
[2019-07-23] MEDS: OMEPRAZOLE 20 MG CAP PO SCH (13:36)
[2019-07-23] MEDS: ASCORBIC ACID 500 MG TAB PO SCH (13:36)
[2019-07-23] MEDS: CALCITRIOL 0.25 MCG CAP (S0169) PO SCH (13:37)
[2019-07-23] MEDS: FOLIC ACID 1 MG TAB PO SCH (13:37)
[2019-07-23] MEDS: CYANOCOBALAMIN 500 MCG TAB PO SCH (13:37)
--- NOTE | 2019-07-23 14:22 | ECHO ---
DATE OF SERVICE: 07/22/2019 REFERRING PHYSICIAN: Dr. Rosey Wylie PATIENT LOCATION: Room 3209 REASON FOR THE STUDY: Pedal edema. 2D MEASUREMENTS: IVS: 0.9 cm LV: 4.9 cm LVPW: 0.9 cm LA: 3.5 cm Aorta: 3.7 cm RV: 2.7 cm IVC: 2.7 cm DOPPLER MEASUREMENTS: Peak velocity across the aortic valve: 1.2 m/s Peak velocity across the LVOT: 0.9 m/s Mitral E: 0.7 Mitral A: 0.8 with a ratio of 0.9 2D COMMENTS: 1. Normal left ventricular size, wall thickness and overall global left ventricular systolic function appeared to be normal with a left ventricular ejection fraction (LVEF) estimated at 50-55%. 2. Normal left atrium. Normal right atrium and left ventricle noted in limited views. 3. Borderline enlarged aortic root at 3.7 cm. 4. A small pericardial effusion was noted in limited views, no evidence of cardiac tamponade. 5. Normal aortic valve, mitral valve, and tricuspid valve noted in limited views. The pulmonic valve and proximal pulmonary artery branches were not well visualized. 6. The inferior vena cava is mildly enlarged, central venous pressure is most likely elevated. DOPPLER: No significant valvular abnormalities detected. Abnormal relaxation pattern was noted across the mitral valve leaflets as well as the mitral valve annulus consistent with features of grade 1 left ventricular diastolic dysfunction. IMPRESSION: 1. Low normal global left ventricular systolic function. There is some features of grade 1 left ventricular diastolic dysfunction manifested by abnormal relaxation. 2. No significant valvular abnormalities detected. 3. A small pericardial effusion was noted, no evidence of cardiac tamponade. 4. The inferior vena cava/IVC is dilated, central venous pressure might be elevated. 5. The study was technically limited due to poor acoustic window.
[2019-07-23] MEDS: SENOKOT S TAB PO SCH (20:51)
[2019-07-23] MEDS ORDERED: TORSEMIDE 10 MG TABLET PO SCH (21:00)
[2019-07-23] MEDS ORDERED: FERROUS GLUCONATE 324 MG TAB PO SCH (21:00)
[2019-07-24 02:00] VITALS: BP 118/70
[2019-07-24 06:00] VITALS: BP 117/71
[2019-07-24] MEDS: HYDROCORTISONE 100 MG/2 ML VIAL (J1720) IV SCH (06:29)
[2019-07-24] MEDS: HEPARIN SOD (PORCINE) 5000 UNITS/ML VIAL SC SCH (06:29)
[2019-07-24 06:31] LABS: BASO % 0.3 % (0.0-1.0); HEMATOCRIT 32.9 % (42.0-52.0); HEMOGLOBIN 11.1 g/dl (13.5-17.5); LYMPH # 1.3 10^3/uL (1.5-5.0); LYMPH % 18.5 % (24.0-44.0); MEAN CORPUSCULAR HEMOGLOBIN 33.3 pg (27.0-33.0); MEAN CORPUSCULAR HGB CONC 33.7 g/dl (32.0-36.5); MEAN CORPUSCULAR VOLUME 98.8 fl (80.0-96.0); MONO # 0.5 10^3/uL (0.0-0.8); MONO % 6.7 % (0.0-5.0); NEUTROPHILS # 5.1 10^3/uL (1.5-8.5); NEUTROPHILS % 73.5 % (36.0-66.0); PLATELET COUNT, AUTOMATED 210 10^3/uL (150-450); RED BLOOD COUNT 3.33 10^6/uL (4.30-6.10)
[2019-07-24 07:00] LABS: CALCIUM LEVEL 7.5 MG/DL (8.8-10.2); CREATININE FOR GFR 2.09 MG/DL (0.70-1.30); GLOMERULAR FILTRATION RATE 32.1 (>35); MAGNESIUM LEVEL 1.7 MG/DL (1.8-2.4); POTASSIUM SERUM 3.5 MEQ/L (3.5-5.1)
[2019-07-24] MEDS: HumaLOG INSULIN (NovoLOG) PER UNIT SC SCH ×2 (07:30→12:00)
[2019-07-24] MEDS ORDERED: POTASSIUM CHLORIDE 10 MEQ SR TABLET PO ONE (07:45)
[2019-07-24] MEDS ORDERED: LACTOBACILLUS ACIDOPHILUS CAP (BACID) PO SCH (09:00)
[2019-07-24] MEDS ORDERED: VITAMIN D 1,000 INTERNATIONAL UNITS TABLET PO SCH (09:00)
[2019-07-24] MEDS ORDERED: TAMSULOSIN 0.4 MG CAP PO SCH (09:00)
[2019-07-24] MEDS: FLUOROURACIL 5% XX SCH (09:00)
[2019-07-24] MEDS ORDERED: MULTIVITAMINS/MINERALS THERAP 1 TAB PO SCH (09:00)
[2019-07-24] MEDS ORDERED: MAG SULF 1GM/100ML (MAG RUN) 1 GM in IV 1 EA IV ONE (09:00)
[2019-07-24] MEDS: TORSEMIDE 20 MG TAB PO SCH (09:09)
[2019-07-24] MEDS: CALCITRIOL 0.25 MCG CAP (S0169) PO SCH (09:09)
[2019-07-24] MEDS: SENOKOT S TAB PO SCH (09:09)
[2019-07-24] MEDS: ASCORBIC ACID 500 MG TAB PO SCH (09:09)
[2019-07-24] MEDS: OMEPRAZOLE 20 MG CAP PO SCH (09:09)
[2019-07-24] MEDS: FOLIC ACID 1 MG TAB PO SCH (09:09)
[2019-07-24] MEDS: ALLOPURINOL 100 MG TAB PO SCH (09:09)
[2019-07-24] MEDS: CYANOCOBALAMIN 500 MCG TAB PO SCH (09:09)
[2019-07-24 10:00] VITALS: BP 121/66
[2019-07-24] MEDS ORDERED: LEVA750T7 PO (10:40)
[2019-07-24] MEDS ORDERED: HYDR-4513 PO (10:40)
[2019-07-24] MEDS ORDERED: FLUD0.1T PO (10:40)
--- NOTE | 2019-07-24 11:01 | DS.PDOC ---
Discharge Summary General Date of Admission Jul 22, 2019 at 06:44 Date of Discharge 07/24/2019 Discharge Summary PROCEDURES PERFORMED DURING STAY: [None]. ADMITTING DIAGNOSES / DISCHARGE DIAGNOSES: Hypotension - possibly 2/2 adrenal crisis in the setting of adrenal insufficiency, possibly 2/2 to hypovolemic shock 2/2 dehydration, unlikely 2/2 septic shock s/p Lactic acidosis Chronic kidney injury Adrenal sufficiency Pulmonary HTN history / Possible Diastolic CHF Multiple myeloma ESTUARDO Urinary retention - likely 2/2 Prostate carcinoma and enlarged prostate Hyperglycemia - likely 2/2 corticosteroids Macrocytic Anemia Gout Vitamin D / B12 deficiency GERD DVT prophylaxis COMPLICATIONS/CHIEF COMPLAINT: Hypotension HISTORY OF PRESENT ILLNESS: Patient is an 88-year-old man with underlying medical history of baseline ambulatory dysfunction, walks with a walker, prostate cancer, multiple myeloma - currently undergoing chemotherapy, basal skin cell cancer, history of cellulitis, adrenal sufficiency currently on hydrocortisone, inguinal hernia with mesh infection approximately 6 years ago. Patient presents as a transfer from [facility] for hypotension. On initial presentation, patient was found to have hypotension after having several days of nausea / vomting and diarrhea. without improvement on fluids. He was given 3.2 L of fluid, started on Zosyn and vancomycin, his port was accessed to begin Levophed via chemo port at 8 mcg per minute, prior to transfer to [facility] for higher level of care. Upon arrival to [facility] patient was stable, did not require IV pressor support. HOSPITAL COURSE: Hypotension - possibly 2/2 adrenal crisis in the setting of adrenal ins ufficiency, possibly 2/2 to hypovolemic shock 2/2 dehydration, possibly 2/2 septic shock - Currently, patient's blood pressure has improved back to his baseline - No leukocytosis, s/p lactic acidosis - Respiratory panel negative - UA consistent with inflammation / U culture negative - Blood cultures negative at 48 hours - CXR 07/22: Bibasilar air space consolidations and atelectasis. Right greater than left pleural effusions. - s/p Broad spectrum antibiotics (Vancomycin and Zosyn); will c/w Levaquin for 4 more days - Hydrocortisone IV will be transitioned to PO and will have outpatient follow up with PCP for further management - Will add Fludrocortisone to discharge medications s/p Lactic acidosis Chronic kidney injury - Patient's baseline creatinine appears to be between 2.0 - 2.1 - s/p IV fluids Adrenal sufficiency - See above Pulmonary HTN history / Possible Diastolic CHF -Prior ECHO done 2015 - evidence of pulmonary HTN and dilated IVC - c/w Home dose of Torsemide Multiple myeloma - Currently undergoing chemotherapy - Will continue to have outpatient follow up with Oncology ESTUARDO - Currently patient is not on CPAP Urinary retention - likely 2/2 Prostate carcinoma and enlarged prostate - Patient has had a Turpin catheter placed by Urology - Will have outpatient follow up with Dr. Martinez - Turpin to remain in place upon discharge Hyperglycemia - likely 2/2 corticosteroids - Glucose levels have not been significantly elevated - Will DC sliding scale on discharge Macrocytic Anemia - Hx of iron deficiency anemia and B12 deficiency - Hg has trended down the point of admission; likely secondary to dilutional etiology - c/w Ferrous sulfate and B12 supplementation Gout - c/w allopurinol Vitamin D / B12 deficiency - c/w Vitamin supplementation GERD - c/w Omeprazole DVT prophylaxis - c/w Heparin DISCHARGE MEDICATIONS: Please see below. ALLERGIES: Please see below. PHYSICAL EXAMINATION ON DISCHARGE: Vitals (See below) General: Lying in bed, no acute distress, comfortable, AAOx3 HEENT: NC, AT CVS: RRR, +S1S2 Lungs: Fair air entry b/l, no appreciable wheezing / rhonchi / rales Abdomen: Soft, ND, NT Extremities: Trace pitting edema bilaterally, - Calf tenderness LABORATORY DATA: Please see below. ACTIVITY: [As tolerated]. DISCHARGE PLAN: Follow up with Dr. Opal Santiago and Dr. Ronald Martinez within 7 days Remain compliant with treatment plan and medications Return to the ER if you experience any problems DISPOSITION: Home DISCHARGE CONDITION: [Stable]. TIME SPENT ON DISCHARGE: 35 minutes Vital Signs/I&Os Vital Signs Date Time Temp Pulse Resp B/P (MAP) Pulse Ox O2 Delivery O2 Flow Rate FiO2 07/24/19 10:00 97.2 55 18 121/66 (84) 97 Room Air 07/22/19 07:27 2.0 I&O- Last 24 Hours up to 6 AM 07/24/19 06:00 Intake Total 1470 ml Output Total 1930 ml Balance -460 ml Laboratory Data Labs 24H Laboratory Tests 2 07/23/19 11:26: Bedside Glucose (Misc Panel) 106 07/23/19 16:17: Bedside Glucose (Misc Panel) 135H 07/23/19 20:08: Bedside Glucose (Misc Panel) 160H 07/24/19 06:13: Immature Granulocyte % (Auto) 1.0, Neutrophils (%) (Auto) 73.5H, Lymphocytes (%) (Auto) 18.5L, Monocytes (%) (Auto) 6.7H, Eosinophils (%) (Auto) 0.0, Basophils (%) (Auto) 0.3, Neutrophils # (Auto) 5.1, Lymphocytes # (Auto) 1.3L, Monocytes # (Auto) 0.5, Eosinophils # (Auto) 0.0, Basophils # (Auto) 0.0, Nucleated Red Blood Cells % (auto) 0.0, Anion Gap 9, Glomerular Filtration Rate 32.1L, Calcium Level 7.5L, Magnesium Level 1.7L CBC/BMP Laboratory Tests 07/24/19 06:13 FSBS Laboratory Tests Test 07/23/19 11:26 07/23/19 16:17 07/23/19 20:08 Range/Units Bedside Glucose (Misc Panel) 106 135 160 83-110 MG/DL Microbiology Microbiology 07/22/19 Respiratory Virus Panel (PCR) (ANDRE) - Final, Complete 07/22/19 Urine Culture - Final, Complete 07/22/19 Blood Culture - Preliminary, Resulted No Growth after 48 hours. All Specime... 07/22/19 Blood Culture - Preliminary, Resulted No Growth after 48 hours. All Specime... Discharge Medications Scheduled Acetaminophen (Acetaminophen) 500 Mg Tablet, 500 MG PO BID, (Reported) Allopurinol (Allopurinol) 100 Mg Tab, 100 MG PO DAILY, (Reported) Ascorbic Acid (Vitamin C) 500 Mg Tab, 500 MG PO DAILY, (Reported) Calcitriol (Rocaltrol) 0.5 Mcg Cap, 0.5 MCG PO DAILY, (Reported) Cholecalciferol (Vitamin D3) (Vitamin D3) 1,000 Unit Tab, 2,000 UNIT PO DAILY, (Reported) Cranberry Fruit (Cranberry) 400 Mg Tab, 400 MG PO DAILY, (Reported) Cyanocobalamin (Vitamin B-12) (Vitamin B-12) 1,000 Mcg Tab, 1,000 MCG PO DAILY, (Reported) Daratumumab (Darzalex) 100 Mg/5 Ml Vial, 1,700 MG IV QMONTH, (Reported) Ferrous Gluconate (Ferrous Gluconate) 324 Mg Tab, 324 MG PO QPM, (Reported) Fludrocortisone Acetate (Fludrocortisone Acetate) 0.1 Mg Tablet, 1 TAB PO DAILY Folic Acid (Folic Acid) 1 Mg Tab, 1 MG PO DAILY, (Reported) Hydrocortisone (Hydrocortisone) 10 Mg Tablet, 20 MG PO BID to be starte after completion of hydrocortisone taper Hydrocortisone (Hydrocortisone) 10 Mg Tablet, 10 MG PO BID 5 tabs BID x 3 days, 3 tabs BID x 3 days then return to home dose L.acidoph/L.bulg/B.bif/S.therm (Bacid Caplet) 1 Each Tablet, 1 TAB PO DAILY, (Reported) Levofloxacin (Levaquin) 750 Mg Tablet, 750 MG PO Q48H to be started on 07/25/2019 Magnesium Oxide (Magnesium Oxide) 250 Mg Tab, 250 MG PO Q2D, (Reported) Multivitamins (Thera M Plus Tablet) 1 Each Tablet, 1 TAB PO DAILY, (Reported) Omeprazole (Omeprazole) 20 Mg Cap, 20 MG PO DAILY, (Reported) Sennosides/Docusate Sodium (Senna Plus Tablet) 1 Tab Tab, 1 TAB PO BID, (Reported) Tamsulosin HCl (Flomax) 0.4 Mg Cap, 0.4 MG PO Q2D, (Reported) Torsemide (Torsemide) 10 Mg Tablet, 10 MG PO QPM, (Reported) Torsemide (Torsemide) 20 Mg Tablet, 20 MG PO DAILY, (Reported) Turmeric/Turmeric Root Extract (Turmeric 500 mg Capsule) 1 Each Capsule, 500 MG PO DAILY, (Reported) Vitamin B Complex (Vitamin B Complex) 1 Each Tablet, 1 TAB PO DAILY, (Reported) Scheduled PRN Loratadine (Loratadine) 10 Mg Tablet, 10 MG PO DAILY PRN for ALLERGY SYMPTOMS, (Reported) Allergies Coded Allergies: Sulfa (Sulfonamide Antibiotics) (Verified Allergy, Intermediate, hives, 12/08/18) aspirin (Verified Adverse Reaction, Intermediate, kidney issues, 07/22/19) REID CASIANO MD Jul 24, 2019 11:01
[2019-07-24] MEDS ORDERED: SODIUM CHLORIDE 0.9% INJ 10 ML SYR IV PRN (12:30)
[2019-07-24] MEDS ORDERED: HYDROCORTISONE 100 MG/2 ML VIAL (J1720) IV SCH (18:00)
== END 2019-07-24 13:40 | disposition home or self-care (01) | DRG 643 ==
LOC: M ICU 06:44 → M MSPAV 07-23 10:33
PROVIDERS: ADMIT Internal Medicine; ATTEND Internal Medicine
PROC: 0THD8YZ Insertion of Other Device into Urethra, Via Natural or Artificial Opening Endoscopic (ICD-10-PCS; principal; 2019-07-22)
DX: E27.2 Addisonian crisis (principal); R57.1 Hypovolemic shock; I50.32 Chronic diastolic (congestive) heart failure; E87.2 Acidosis; C90.00 Multiple myeloma not having achieved remission; I27.20 Pulmonary hypertension, unspecified; G47.33 Obstructive sleep apnea (adult) (pediatric); E55.9 Vitamin D deficiency, unspecified; E53.8 Deficiency of other specified B group vitamins; I95.9 Hypotension, unspecified; C61 Malignant neoplasm of prostate; R33.9 Retention of urine, unspecified; M10.9 Gout, unspecified; R73.9 Hyperglycemia, unspecified; D53.9 Nutritional anemia, unspecified; Z85.828 Personal history of other malignant neoplasm of skin; Z79.52 Long term (current) use of systemic steroids; Z79.899 Other long term (current) drug therapy; Z88.2 Allergy status to sulfonamides; Z88.6 Allergy status to analgesic agent

== ENCOUNTER 2019-08-18 11:21 | Day surgery (SDC) | payer MEDICARE ==
[~2019-08-18] VITALS: Ht 175.3 cm; Wt 114.3 kg
[~2019-08-18 11:21] MED LIST changes: +ACET-839 PO; +B COTAB3 PO; +CBD OIL PO; +DARZ1SOL IV; +FLUD0.1T PO; +HYDR-4513 PO; +HYDROCORTISONE 100 MG/2 ML VIAL (J1720 PER 1) IV ONE; +KRIS20PA4 PO; +LEVA750T7 PO; +LIDOCAINE 1% MDV 20ML VIAL SQ PRN; +LIDOCAINE 2% INJ 100 MG/5 ML SDV (FOR ANES.) As Ordered ONE; +LORA-674 PO; +LR 1,000 ML IV ONE; +LevoFLOXacin IV 500 MG in IV 1 EA IV ONE; +METO1TAB7 PO; +MILKSUS3 PO; +ONDANSETRON 4MG/2ML VIAL (J2405) As Ordered ONE; +PROPOFOL 200 MG/20 ML VIAL As Ordered ONE; +RAPA8CAP4 PO; +TORS10TA3 PO; +TRAZ-252 PO; +TRIA37.53 PO; +TUMS500C PO; +TURM500C PO; +VITMTA PO; +dexameTHASONE 4 MG/ML 1ML VIAL (J1100) As Ordered ONE
[2019-08-18] MEDS ORDERED: PROPOFOL 500 MG/50 ML VIAL As Ordered ONE (11:25)
[2019-08-18] MEDS ORDERED: LIDOCAINE 2% 5ML JELLY UROJET As Ordered ONE (11:45)
[2019-08-18] MEDS ORDERED: AMOX875T2 (12:11)
[2019-08-18] MEDS ORDERED: fentaNYL 100 MCG/2 ML INJECTION (J3010) As Ordered ONE (12:40)
[2019-08-18] MEDS ORDERED: PHENYLephrine HCL 500 MCG/5 ML (100MCG/ML) SYRINGE (J2370) As Ordered ONE (12:50)
[2019-08-18] MEDS ORDERED: LABETALOL HCL 100 MG/20 ML VIAL As Ordered ONE (12:51)
[2019-08-18] MEDS ORDERED: FUROSEMIDE 100 MG/10 ML VIAL (J1940) As Ordered ONE (13:14)
[2019-08-18] MEDS: fentaNYL 100 MCG/2 ML INJECTION (J3010) IV PRN ×4 (13:40→13:55)
[2019-08-18] MEDS: oxyCODONE 5MG TAB PO PRN ×2 (13:40→14:10)
[2019-08-18] MEDS ORDERED: ONDANSETRON 4MG/2ML VIAL (J2405) IV PRN (13:45)
[2019-08-18] MEDS ORDERED: LR 1,000 ML IV SCH (13:45)
[2019-08-18] MEDS ORDERED: ACETAMINOPHEN TAB 650MG DOSE (2X325MG) PO PRN (13:45)
--- NOTE | 2019-08-18 15:00 | RO ---
DATE OF PROCEDURE: 08/18/2019 PREPROCEDURE DIAGNOSIS: Bladder neck contracture. POSTPROCEDURE DIAGNOSIS: Bladder neck contracture, benign prostatic hyperplasia. PROCEDURE: Cystoscopy, button transurethral electrovaporization of the prostate. SURGEON: Trent Martinez MD PATIENT CARE ASSOCIATE: None. ANESTHESIA: General. OPERATIVE INDICATIONS: This is an 89-year-old male who was recently found to have a bladder neck contracture on flexible cystoscopy. At that time, he had dilation of the contracture and a catheter was also placed at that time. He was brought to the operating room today for possible bladder neck contracture incision. DESCRIPTION OF PROCEDURE: The patient was brought to the operating room and general anesthesia was induced. Prophylactic antibiotics were infused. He was then placed in the dorsal lithotomy position, prepped and draped in the usual sterile fashion. At this point, a resectoscope was inserted into the urethral meatus and advanced into the bladder using the visual obturator. Getting the scope through the prostatic urethra was very difficult as the prostate very hard from his history of previous cryotherapy. There was a mild contracture. At this point, I used a Tinoco knife to incise the bladder neck contracture at 5 and 7 o'clock. Despite doing this, it did not seem to open up the bladder neck and the prostate very much. I had concerns that he was going to have difficulty voiding and we would also have difficulty getting catheters in and out. I therefore decided to remove the hyperplastic prostate tissue using a Gyrus button. At this point, I began vaporizing hyperplastic tissue on the median lobe and both lateral lobes and I kept doing this until there was a clear channel established. Throughout the procedure I made sure not to vaporize close to the ureteral orifices or distal to the verumontanum. Once there was a clear channel established hemostasis was obtained using coagulation current. Once satisfied with hemostasis, this marked the conclusion of the procedure. The resectoscope was then removed from the bladder and an 18 Irish Turpin catheter was inserted. The catheter balloon was filled with 15 mL of sterile water and fluid drained clear at the end of the procedure. The catheter was connected to gravity drainage. The patient was then taken out of dorsal lithotomy position, awakened from anesthesia and transferred to the recovery room in stable condition. ESTIMATED BLOOD LOSS: 5 mL. COMPLICATIONS: None. SPECIMENS: None. PLAN: The patient will followup in the clinic in approximately one week for catheter removal and a voiding trial. MUNIR
[2019-08-18 16:15] VITALS: BP 143/90
== END 2019-08-18 16:35 | disposition home or self-care (01) ==
LOC: M SDC 11:21
PROVIDERS: ATTEND Urology
DX: N32.0 Bladder-neck obstruction (principal); N40.0 Benign prostatic hyperplasia without lower urinary tract symptoms; M10.9 Gout, unspecified; K21.9 Gastro-esophageal reflux disease without esophagitis; D64.9 Anemia, unspecified; Z87.891 Personal history of nicotine dependence; Z79.899 Other long term (current) drug therapy; Z92.21 Personal history of antineoplastic chemotherapy; Z92.3 Personal history of irradiation; Z85.79 Personal history of other malignant neoplasms of lymphoid, hematopoietic and related tissues; Z88.2 Allergy status to sulfonamides; Z88.8 Allergy status to other drugs, medicaments and biological substances
CPT/HCPCS: 52601; J1100; J1720; J1940; J1956; J2370; J2405; J3010

== ENCOUNTER → 2019-08-25 | Outpatient (REF) | payer MEDICARE ==
[~2019-08-25] MED LIST changes: +AMOX875T2; -HYDROCORTISONE 100 MG/2 ML VIAL (J1720 PER 1) IV ONE; -LIDOCAINE 1% MDV 20ML VIAL SQ PRN; -LIDOCAINE 2% INJ 100 MG/5 ML SDV (FOR ANES.) As Ordered ONE; -LR 1,000 ML IV ONE; -LevoFLOXacin IV 500 MG in IV 1 EA IV ONE; +OMEP1CAP73 PO; -OMEP20CA4 PO; -ONDANSETRON 4MG/2ML VIAL (J2405) As Ordered ONE; -PROPOFOL 200 MG/20 ML VIAL As Ordered ONE; -dexameTHASONE 4 MG/ML 1ML VIAL (J1100) As Ordered ONE
== END ==
LOC: M SMT 17:09
PROVIDERS: ATTEND Urology
DX: R33.9 Retention of urine, unspecified (principal)

== ENCOUNTER → 2019-09-26 | Outpatient (REF) | payer MEDICARE ==
[2019-09-26 13:21] LABS: ALBUMIN 2.9 GM/DL (3.2-5.2); CALCIUM LEVEL 8.4 MG/DL (8.8-10.2); CREATININE FOR GFR 1.8 MG/DL (0.70-1.30); GLOMERULAR FILTRATION RATE 38.1 (>35); PHOSPHORUS LEVEL 3.1 MG/DL (2.5-4.9); POTASSIUM SERUM 3.9 MEQ/L (3.5-5.1); URIC ACID 8.2 MG/DL (3.5-7.2)
[2019-09-26 13:24] LABS: APPEARANCE, URINE CLEAR (CLEAR); BACTERIA, URINE AUTO 1+ (NEGATIVE); BILIRUBIN, URINE AUTO NEGATIVE (NEGATIVE); BLOOD, URINE BLOOD NEGATIVE (NEGATIVE); COLOR, URINE YELLOW (YELLOW); GLUCOSE, URINE (UA) AUTO NEGATIVE (NEGATIVE); KETONE, URINE AUTO NEGATIVE (NEGATIVE); LEUKOCYTE ESTERASE, URINE AUTO 2+ (NEGATIVE); NITRITE, URINE AUTO NEGATIVE (NEGATIVE); PROTEIN, URINE AUTO NEGATIVE (NEGATIVE); RBC, URINE AUTO 4 /HPF (0-3); SPECIFIC GRAVITY URINE AUTO 1.009 (1.002-1.035); SQUAMOUS EPITHELIAL CELL UR AU 0 /HPF (0-6); UROBILINOGEN, URINE AUTO 0.2 mg/dL (0.0-2.0); WBC, URINE AUTO 22 /HPF (0-3)
[2019-09-26 13:31] LABS: BASO # 0.1 10^3/uL (0.0-0.2); BASO % 0.7 % (0.0-1.0); EOS # 0.2 10^3/uL (0.0-0.5); EOS % 2.5 % (0.0-3.0); HEMATOCRIT 39.9 % (42.0-52.0); HEMOGLOBIN 12.7 g/dl (13.5-17.5); LYMPH % 22.8 % (24.0-44.0); MEAN CORPUSCULAR HEMOGLOBIN 30.9 pg (27.0-33.0); MEAN CORPUSCULAR HGB CONC 31.8 g/dl (32.0-36.5); MEAN CORPUSCULAR VOLUME 97.1 fl (80.0-96.0); MONO # 0.7 10^3/uL (0.0-0.8); MONO % 8.2 % (0.0-5.0); NEUTROPHILS # 5.6 10^3/uL (1.5-8.5); NEUTROPHILS % 64.1 % (36.0-66.0); PLATELET COUNT, AUTOMATED 326 10^3/uL (150-450); RED BLOOD COUNT 4.11 10^6/uL (4.30-6.10); WHITE BLOOD COUNT 8.7 10^3/uL (4.0-10.0)
[2019-09-26 13:36] LABS: PTH INTACT 37.4 PG/ML (18.5-88.0)
== END ==
LOC: M LAB REF 12:59
PROVIDERS: ATTEND Internal Medicine Nephrology
DX: N18.4 Chronic kidney disease, stage 4 (severe) (principal); N25.81 Secondary hyperparathyroidism of renal origin; D63.1 Anemia in chronic kidney disease

== ENCOUNTER → 2020-08-13 | Outpatient (CLI) | payer MEDICARE ==
[~2020-08-13] MED LIST changes: +HYDR-4468 PO; -HYDR-4513 PO; -LACT10SO29 PO; +LACT20EL PO; -MONT10TA2 PO; +MONT5TAB2 PO; +NITR100C2 PO; +OSTE1TAB2 PO; +POMA2CAP PO; +RA B1TAB2 PO; +VITA1CAP25 PO; +VITA1CHW7 PO; +VITA200038 PO
--- NOTE | 2020-08-13 09:56 | REP ---
INDICATION: SWELLING RT LEG R/O DVT COMPARISON: None. TECHNIQUE: Pradhan scale and color Doppler evaluation right lower extremity using linear high frequency transducer. FINDINGS: Ultrasound examination of the right lower extremity deep venous structures from the common femoral vein to the popliteal vein demonstrates normal compressibility flow and wave patterns in response to respiration and augmentation. There is no evidence for deep venous thrombosis. IMPRESSION: No evidence for deep venous thrombosis. <Electronically signed by Otto Ornelas > 08/13/20 [id number]
== END ==
LOC: M RAD 09:28
PROVIDERS: ATTEND Internal Medicine Medical Oncology
DX: R22.41 Localized swelling, mass and lump, right lower limb (principal)

== ENCOUNTER 2020-09-11 10:02 | Outpatient (CLI) | payer MEDICARE ==
[~2020-09-11] VITALS: Ht 175.3 cm; Wt 110.0 kg
[~2020-09-11 10:02] MED LIST changes: +ACETAMINOPHEN TAB 650MG DOSE (2X325MG) PO SCH; +diphenhydrAMINE 25MG CAP PO SCH
[2020-09-11] MEDS ORDERED: SODIUM CHLORIDE 0.9% INJ 10 ML SYR IV PRN (10:15)
[2020-09-11 10:48] VITALS: BP 105/79
[2020-09-11 11:05] VITALS: BP 102/67
[2020-09-11 12:21] VITALS: BP 128/64
[2020-09-12] MEDS ORDERED: SODIUM CHLORIDE 0.9% INJ 10 ML SYR IV SCH (09:00)
== END 2020-09-11 12:55 | disposition home or self-care (01) ==
LOC: M INFU 10:02
PROVIDERS: ATTEND Internal Medicine Hematology & Oncology
DX: D64.9 Anemia, unspecified (principal)
CPT/HCPCS: 36430; J1642; P9016

== ENCOUNTER → 2020-09-15 | Outpatient (REF) | payer MEDICARE ==
[~2020-09-15] MED LIST changes: -ACETAMINOPHEN TAB 650MG DOSE (2X325MG) PO SCH; -diphenhydrAMINE 25MG CAP PO SCH
== END ==
LOC: M LAB REF 08:49
PROVIDERS: ATTEND Internal Medicine Medical Oncology
DX: Z12.10 Encounter for screening for malignant neoplasm of intestinal tract, unspecified (principal); D64.9 Anemia, unspecified